=== PATIENT | male | born 1990 | race Hispanic/Latino ===

== ENCOUNTER 2020-07-11 17:16 | Emergency (ER) | payer OTHER, SELFPAY ==
--- NOTE | ~2020-07-11 | XR_ITS ---
EXAMINATION: XR chest 1V DATE: 07/11/2020 18:40 INDICATION: Transient alteration of awareness TECHNIQUE: frontal view of the chest was obtained. COMPARISON: Chest radiograph dated 09/21/2016 FINDINGS: Small lung volumes with minimal opacities at the bilateral lung bases most likely mild basilar atelec tasis related to poor respiratory effort. No pleural effusion or pneumothorax. The cardiomediastinal silhouette is normal. Centimeters retrograde with increased sclerosis at the endplates as well as bon e within bone appearance at the left humeral head, both findings consistent with osteopetrosis. IMPRESSION: 1. Mildly decreased lung volumes with minimal bibasilar opacities and favor atelectasis related to po or inspiratory effort over pneumonia or pulmonary edema. 2. Sclerotic skeletal changes consistent with osteopetrosis. Reviewed, dictated and finalized at location . [facility] SCOUT IMPRESSION: 1. Mildly decreased lung volumes with minimal bibasilar opacities and favor ate lectasis related to poor inspiratory effort over pneumonia or pulmonary edema. 2. Sclerotic skeletal changes consistent with osteopetrosis.
--- NOTE | ~2020-07-11 | CT_ITS ---
EXAMINATION: CT brain wo con DATE: 07/11/2020 18:38 INDICATION: Abnormal shaking TECHNIQUE: Computed tomography (CT) of the head was performed without intravenous contrast. Sagittal and coronal reconstructions were performed. The mA was adjusted according to patient size. Iterative reconstruction technique was employed. The dose-length product was 605.33 mGy-cm. COMPARISON: head CT dated 09/21/2016 FINDINGS: No acute intracranial hemorrhage, acute infarction or abnormal extra axial fluid collection. Ventricl es are normal and symmetric. No mass/mass effect. Mild mucosal thickening the posterior right ethmoid air cells. The orbits and mastoid air cells are normal. IMPRESSION: 1. Normal brain. No acute intracranial process. Reviewed, dictated and finalized at location . [facility] RECEPTIONIST
[2020-07-11 17:51] VITALS: BP 149/80; PULSE 86; RESP 17; TEMP 36.5; O2SAT 100
--- NOTE | 2020-07-11 18:15 | ECG_ITS ---
Measurements Intervals [place] Rate: 72 P: 65 ME: 137 QRS: 48 QRSD: 88 T: 36 QT: 374 QTc: 410 Interpretive Statements SINUS RHYTHM BASELINE ARTIFACT- I, II, III, AVR, AVL,A VF NORMAL ECG Electronically Signed On 07-12-2020 8:45:03 FEDERAL MEDIATOR by Akil Moon D.O.
--- NOTE | 2020-07-11 18:20 | ED.GENADULT ---
HPI - General Adult General Chief complaint: Psychiatric Symptoms Stated complaint: Anxiety Time Seen by Provider: 07/11/20 18:00 Source: family Mode of arrival: ambulatory Limitations: altered mental status History of Present Illness HPI narrative: This patient is a 30 year old male who presents with his father for evaluation of shaking. His father states that he returned from work to find patient was drinking some beer. He states patient reported he needed to take a shower. He states later patient started saying he cooking breath and he started shaking. He states patient had a couple episodes of this en route to ER. He states patient has had similar episodes in the past and he has been hospitalized in a psychiatric facility. HE also notes patient has a history of seizures but he is unware of medications or any other history. Patient appears paranoid and he is slow to respond to answers. He states he is here for anxiety. Related Data Home Medications Medication Instructions Recorded Confirmed No Home Medications 07/11/20 07/11/20 Allergies Allergy/AdvReac Type Severity Reaction Status Date / Time haloperidol Allergy Unknown Unknown Verified 07/11/20 17:50 ketorolac Allergy Unknown Unknown Verified 07/11/20 17:50 tramadol Allergy Unknown Unknown Verified 07/11/20 17:50 AMOXICILLIN TRIHYDRATE Allergy Intermediate Hives / Uncoded 02/09/18 14:54 Red Face POTASSIUM CLAVULANATE Allergy Mild Unknown Uncoded 07/11/20 17:50 HALOPERIDOL LACTATE Allergy Unknown Unknown Uncoded 07/11/20 17:50 Review of Systems Review of Systems: ROS unobtainable: Yes unobtainable due to mental status PMFSH Past Medical History Medical History (Updated 07/11/20 @ 18:21 by Mercy Adams MD) Anxiety Bipolar disorder PTSD (post-traumatic stress disorder) Seizures Surgical History Surgical History (Updated 07/11/20 @ 18:22 by Mercy Adams MD) Hx of appendectomy Social History Social History (Updated 07/11/20 @ 18:23 by Mercy Adams MD) Smoking status: Unknown if ever smoked Alcohol intake: current Substance use type: crack/cocaine and heroin Gender identity (if verbalized by the patient): Male Course Vital Signs Vital signs: Vital Signs Temperature 97.7 F 07/11/20 17:51 Pulse Rate 86 07/11/20 17:51 Respiratory Rate 17 07/11/20 17:51 Blood Pressure 149/80 H 07/11/20 17:51 Pulse Oximetry 100 07/11/20 17:51 Temperature 97.7 F 07/11/20 17:51 Pulse Rate 86 07/11/20 17:51 Respiratory Rate 17 07/11/20 17:51 Blood Pressure 149/80 H 07/11/20 17:51 Pulse Oximetry 100 07/11/20 17:51 Medical Decision Making Vital Signs Vital Signs: Vital Signs Temperature 97.7 F 07/11/20 17:51 Pulse Rate 86 07/11/20 17:51 Respiratory Rate 17 07/11/20 17:51 Blood Pressure 149/80 H 07/11/20 17:51 Pulse Oximetry 100 07/11/20 17:51 Temperature 97.7 F 07/11/20 17:51 Pulse Rate 86 07/11/20 17:51 Respiratory Rate 17 07/11/20 17:51 Blood Pressure 149/80 H 07/11/20 17:51 Pulse Oximetry 100 07/11/20 17:51 Discharge Plan Discharge Prescriptions: No Action No Home Medications RF: 0
--- NOTE | 2020-07-11 18:27 | ED.GENADULT ---
HPI - General Adult General Chief complaint: Psychiatric Symptoms Stated complaint: Anxiety Time Seen by Provider: 07/11/20 18:00 Source: family Mode of arrival: ambulatory Limitations: altered mental status History of Present Illness HPI narrative: This patient is a 30 year old male with history of Bipolar, PTSD, and seizures who presents for evaluation of anxiety. His father is at bedside and he states he brought patient to the ER for shaking. He states he came home and patient was drinking beer. He reports he left and he returned again. PAtient starting having trouble breathing and he was shaking. He states this happened a couple times. He states this has happened to patient before and he has been hospitalized for a psychiatric issue. HE also notes patient has history of seizures but he is unsure of any medications. On review of his chart , has history of pseudoseizures. PAtient states he is here from anxiety but he is not able to discuss any further. HE is just laying in bed and he appears distrustful with answers. Related Data Home Medications Medication Instructions Recorded Confirmed No Home Medications 07/11/20 07/11/20 Allergies Allergy/AdvReac Type Severity Reaction Status Date / Time haloperidol Allergy Unknown Unknown Verified 07/11/20 17:50 ketorolac Allergy Unknown Unknown Verified 07/11/20 17:50 tramadol Allergy Unknown Unknown Verified 07/11/20 17:50 AMOXICILLIN TRIHYDRATE Allergy Intermediate Hives / Uncoded 02/09/18 14:54 Red Face POTASSIUM CLAVULANATE Allergy Mild Unknown Uncoded 07/11/20 17:50 HALOPERIDOL LACTATE Allergy Unknown Unknown Uncoded 07/11/20 17:50 Review of Systems Review of Systems: All systems reviewed & are unremarkable except as noted in HPI and below Constitutional: Constitutional: Denies chills and Denies fever(s) Cardiovascular: Cardiovascular: Denies chest pain Respiratory: Respiratory: Denies cough and Reports dyspnea Gastrointestinal: Gastrointestinal: Denies abdominal pain, Denies nausea and Denies vomiting PMFSH Past Medical History Medical History (Updated 07/12/20 @ 00:53 by Mercy Adams MD) Anxiety Bipolar disorder PTSD (post-traumatic stress disorder) Seizures Surgical History Surgical History (Updated 07/11/20 @ 18:22 by Mercy Adams MD) Hx of appendectomy Social History Social History (Updated 07/11/20 @ 18:23 by Mercy Adams MD) Smoking status: Unknown if ever smoked Alcohol intake: current Substance use type: crack/cocaine and heroin Gender identity (if verbalized by the patient): Male Exam Const: General: no acute distress and alert Orientation/consciousness: patient oriented x3 HENMT: Head: normocephalic and atraumatic Face and sinus: face symmetric Mouth: Yes Normal oral and palatal mucosa present, Yes lip normal, Yes oropharynx normal and Yes moist mucous membranes Eyes: EOM: EOMs intact bilaterally Resp: Effort & Inspection: normal respiratory effort and no retractions Auscultation: clear to auscultation bilaterally Cardio: Rate: regular rate Rhythm: regular rhythm Heart sounds: no murmurs GI: GI Palp: Yes Soft to palpation, No Tenderness to palpation present (GI), No Guarding due to palpation present (GI) and No Rigid due to palpation Auscultation: normal bowel sounds Skin: General skin exam: normal color Rashes: no rashes Neuro: General: patient oriented x3, moves all extremities and CN's II-XI intact bilaterally Extrem: General: normal to inspection Psych: Appearance: grossly normal Other: flat affect. patient will stare at you before answer. He denies suicide and homicidal t Course Reevaluation(s) Reevaluation #1: Patient has not had an shortness of breath in ER. I spoke with his father using that [employer] video cryptologic technician. He states patient was released from penitentiary 1-2 weeks ago. He is unsure of what medication he takes. PAtient has no complaints currently. He states patient was tomas
--- NOTE | 2020-07-11 18:32 | PC.NURSE ---
Pt taken to CT at this time
[2020-07-11 18:55] LABS: Glucose Point of Care 93 (65-105)
[2020-07-11 19:18] LABS: Add Urine Microscopic? NO; Appearance Urine Clear (Clear); Bilirubin Urine Negative (Negative); Blood Urine Negative (Negative); Color Urine Colorless (Yellow); Glucose Urine UA Negative (Negative); Ketones Urine Negative (Negative); Leukocyte Esterase Ur Negative LEU/UL (Negative); Nitrate Urine Negative (Negative); Protein Urine Negative (Negative); Urobilinogen Urine Negative mg/dL (<2.0)
[2020-07-11 19:25] LABS: Specific Grav Ur 1.004 (1.001-1.035)
[2020-07-11 19:32] LABS: Barbiturate Screen Urine Negative (Negative); Benzodiazepines Screen Urine Negative (Negative)
[2020-07-11 19:33] LABS: Cannabinoid Screen Urine Negative (Negative); Cocaine Screen Urine Negative (Negative); Methadone Screen Urine Negative (Negative); Opiate Screen Urine Negative (Negative); Phencyclidine Screen Urine Negative (Negative)
[2020-07-11 19:50] LABS: Basophils Absolute Auto 0.1 K/mm3 (0.0-0.1); Basophils Percent Auto 0.7 % (0.2-1.2); Eosinophils Absolute Auto 0.3 K/mm3 (0-0.3); Eosinophils Percent Auto 3.7 % (0-4.4); Hematocrit 51.8 % (42.0-52.0); Hemoglobin 17.6 g/dL (14.0-18.0); Immature Granulocyte Absolute 0.02 K/mm3 (0.00-0.031); Immature Granulocyte Percent A 0.3 % (0-0.5); Lymphocytes Absolute Auto 2.05 K/mm3 (0.9-3.2); Lymphocytes Percent Auto 30.7 % (18.3-44.2); Mean Corpuscular Volume 88.4 fl (80-100); Monocytes Absolute Auto 0.3 K/mm3 (0.1-0.6); Monocytes Percent Auto 4.5 % (2.6-8.5); Neutrophils Percent Auto 60.1 % (45.5-73.1); Platelet Count Result 299 k/mm3 (150-375); Red Blood Count 5.86 M/mm3 (4.6-6.20); Red Cell Distribution Width 13.5 % (11.5-14.5); White Blood Count 6.7 K/mm3 (4.5-10.0)
[2020-07-11 20:05] LABS: Acetaminophen < 10 ug/mL (10-30); Ethanol < 10 mg/dL (<10); Salicylate 1.3 mg/dL (2-20)
[2020-07-11 20:06] LABS: Potassium 3.8 mmol/L (3.4-5.0)
[2020-07-11 20:10] LABS: Alanine Aminotransferase 19 U/L (4-50); Albumin Level 4.9 g/dL (3.5-5.1); Alkaline Phosphatase 97 U/L (38-126); Anion Gap 9 mmol/L (8-16); Aspartate Amino Transferase 41 U/L (17-59); Bilirubin,Total 0.4 mg/dL (0.2-1.3); Blood Urea Nitrogen 8 mg/dL (9-20); Calcium 9.8 mg/dL (8.4-10.2); Carbon Dioxide 33 mmol/L (22-30); Chloride 98 mmol/L (98-107); Estimated CRCL calculation 120 ml/min; Estimated Glomerular Filt Rate > 60; Glucose 67 mg/dL (75-110); Sodium 140 mmol/L (137-145)
[2020-07-11 20:16] LABS: Amphetamine Screen Urine Positive (Negative)
[2020-07-11 20:18] LABS: Phenytoin Dilantin < 3 ug/mL (10-20)
[2020-07-11 20:20] LABS: Lithium < 0.2 mmol/L (0.6-1.2)
--- NOTE | 2020-07-11 20:29 | PC.NURSE ---
Not cleared to call [facility] at this time per Dr. Adams; per her father brought pt. in for shakiness
[2020-07-11 21:43] VITALS: BP 137/80; PULSE 75; RESP 16; O2SAT 100
[2020-07-12 00:33] VITALS: BP 128/72; PULSE 88; RESP 18; O2SAT 100
[2020-07-12] MEDS: LORazepam (*CRX) 1 MG TABLET PO (00:35)
== END 2020-07-12 01:03 | disposition home or self-care (01) ==
PROVIDERS: Emergency Provider General Practice
DX: F41.9 Anxiety disorder, unspecified (principal); F15.10 Other stimulant abuse, uncomplicated
CPT/HCPCS: 36415; 70450; 71045; 80053; 80178; 80185; 80307; 81003; 82948; 84443; 85025; 93005; 99284; A9270

== ENCOUNTER 2021-06-09 07:04 | Emergency (ER) | payer OTHER, SELFPAY ==
--- NOTE | ~2021-06-09 | XR_ITS ---
EXAMINATION: XR lumbar spine 2-3V DATE: 06/09/2021 07:37 INDICATION: Back pain TECHNIQUE: Anteroposterior and lateral views of the lumbar spine, and cone-down lateral view of the l umbosacral junction were obtained. COMPARISON: 01/07/2010 FINDINGS: There are 6 mm of retrolisthesis of L5 on S1. No acute fracture is identified. There is mil d loss of intervertebral disc space height at L5-S1. There is a chronic superior endplate deformity i n the L1 vertebral body. The vertebral body heights are maintained. A metallic density projects in th e right lower quadrant. IMPRESSION: 1. Grade 1 retrolisthesis of L5 on S1. 2. Rugger-jersey spine, consistent with hyperparathyroidism versus osteopetrosis. Reviewed, dictated and finalized at location A. IMPRESSION: 1. Grade 1 retrolisthesis of L5 on S1. 2. Rugger-jersey spine, consistent with hyperparathyroidism versus osteopetrosi s.
[2021-06-09 07:13] VITALS: BP 158/94; PULSE 71; RESP 18; TEMP 36.6; O2SAT 97
--- NOTE | 2021-06-09 07:33 | ED.GENADULT ---
HPI - General Adult General Chief complaint: Back Pain/Injury Stated complaint: PAIN ALL OVER Time Seen by Provider: 06/09/21 07:11 Source: patient, RN notes reviewed and old records reviewed Mode of arrival: EMS Limitations: other (poor historian) History of Present Illness HPI narrative: This is a 31 year old male with history of Bipolar, polysubstance abuse who presents via EMS for evaluation of back pain. Patient states he went for a walk last night and he fell. He tells me he has low back pain since his fall. He has pain that radiates down both legs. Denies numbness, tingling, urinary incontinence. EMS reports patient called 911 due to pain all over. Patient is poor historian. He answers I don't remember to most questions. Patient has come to ER with a suitcase and he states that is all his belongings. He admits to drinking 2 shots of garza goose in past 5 days . He denies recent drug use. Related Data Home Medications Medication Instructions Recorded Confirmed No Home Medications 07/11/20 07/11/20 Allergies Allergy/AdvReac Type Severity Reaction Status Date / Time haloperidol Allergy Unknown Unknown Verified 07/11/20 17:50 ketorolac Allergy Unknown Unknown Verified 07/11/20 17:50 tramadol Allergy Unknown Unknown Verified 07/11/20 17:50 AMOXICILLIN TRIHYDRATE Allergy Intermediate Hives / Uncoded 02/09/18 14:54 Red Face POTASSIUM CLAVULANATE Allergy Mild Unknown Uncoded 07/11/20 17:50 HALOPERIDOL LACTATE Allergy Unknown Unknown Uncoded 07/11/20 17:50 Review of Systems Review of Systems: All systems reviewed & are unremarkable except as noted in HPI and below PMFSH Past Medical History Medical History (Updated 06/09/21 @ 09:24 by Mercy Adams MD) Anxiety Bipolar disorder PTSD (post-traumatic stress disorder) Seizures Surgical History Surgical History (Updated 07/11/20 @ 18:22 by Mercy Adams MD) Hx of appendectomy Social History Social History (Updated 07/11/20 @ 18:23 by Mercy Adams MD) Smoking status: Unknown if ever smoked Alcohol intake: current Substance use type: crack/cocaine and heroin Gender identity (if verbalized by the patient): Male Exam Narrative: GENERAL: Well-appearing, well-nourished, and in no acute distress. HEAD: Normocephalic, atraumatic EYES: PERRLA and EOMI, conjunctiva clear without discharge EARS: TM's clear bilaterally without erythema or dullness NOSE: Nares clear, no rhinorrhea or epistaxis THROAT:Mucous membranes moist, Oropharynx normal without erythema, exudate, peritonsillar swelling or fluctuance NECK: Supple, without lymphadenopathy or mass RESPIRATORY: No respiratory distress, Airway patent, Respirations non-labored, Clear to auscultation without rales, rhonchi or wheeze HEART: Regular rate and rhythm. No murmur heard. Normal peripheral pulses. ABDOMEN: Soft, nontender, nondistended, normal active bowel sounds. No masses. No rebound or guarding, No organomegaly. EXTREMITIES: No edema, normal strength with full range of motion. small blisters to bottom of right foot SKIN: Warm, dry, normal color without rash NEURO: Alert and oriented x3. CN 2-12 grossly intact. No focal deficits. PSYCH: Normal mood and affect. Course Reevaluation(s) Reevaluation #1: I Discussed with patient labs unremarkable other than positive drug screen. He is stable for discharge. He is able to ambulate with steady gait, no difficulty Date: 06/09/21 Time: 08:56 Vital Signs Vital signs: Vital Signs Temperature 97.8 F 06/09/21 07:13 Pulse Rate 71 06/09/21 07:13 Respiratory Rate 18 06/09/21 07:13 Blood Pressure 158/94 H 06/09/21 07:13 Pulse Oximetry 97 06/09/21 07:13 Temperature 97.8 F 06/09/21 07:13 Pulse Rate 71 06/09/21 07:13 Respiratory Rate 18 06/09/21 07:13 Blood Pressure 158/94 H 06/09/21 07:13 Pulse Oximetry 97 06/09/21 07:13 Medical Decision Making Vital Signs Vital Signs: Vital Signs
[2021-06-09 07:58] LABS: Add Urine Microscopic? YES; Appearance Urine Clear (Clear); Bacteria Urine Trace /hpf; Bilirubin Urine Negative (Negative); Blood Urine Negative (Negative); Color Urine Yellow (Yellow); Glucose Urine UA Negative (Negative); Ketones Urine Trace mg/dL (Negative); Leukocyte Esterase Ur Negative LEU/UL (Negative); Mucus Urine Heavy /lpf; Nitrate Urine Negative (Negative); Protein Urine 1+ mg/dL (Negative); WBC Urine 0-3 /hpf
[2021-06-09] MEDS: ACETAMINOPHEN 500 MG TABLET 1000 MG PO (08:05)
[2021-06-09] MEDS: CYCLOBENZAPRINE HCL 10 MG TABLET PO (08:05)
[2021-06-09 08:10] LABS: Barbiturate Screen Urine Negative (Negative); Benzodiazepines Screen Urine Negative (Negative)
[2021-06-09 08:11] LABS: Cannabinoid Screen Urine Negative (Negative); Cocaine Screen Urine Negative (Negative); Methadone Screen Urine Negative (Negative); Opiate Screen Urine Positive (Negative); Phencyclidine Screen Urine Negative (Negative)
[2021-06-09 08:20] LABS: Basophils Absolute Auto 0.1 K/mm3 (0.0-0.1); Basophils Percent Auto 0.9 % (0.2-1.2); Eosinophils Absolute Auto 0.1 K/mm3 (0-0.3); Eosinophils Percent Auto 1.6 % (0-4.4); Hematocrit 42.7 % (42.0-52.0); Hemoglobin 14.3 g/dL (14.0-18.0); Immature Granulocyte Absolute 0.02 K/mm3 (0.00-0.031); Immature Granulocyte Percent A 0.3 % (0-0.5); Lymphocytes Absolute Auto 2.29 K/mm3 (0.9-3.2); Lymphocytes Percent Auto 29.7 % (18.3-44.2); Mean Corpuscular HGB Conc 33.5 g/dl (32-36); Mean Corpuscular Hemoglobin 30.4 pg (26-34); Mean Corpuscular Volume 90.7 fl (80-100); Mean Platelet Volume 9.2 fl (7.4-10.4); Monocytes Absolute Auto 0.6 K/mm3 (0.1-0.6); Monocytes Percent Auto 7.8 % (2.6-8.5); Neutrophils Absolute Auto 4.6 K/mm3 (1.3-6.7); Neutrophils Percent Auto 59.7 % (45.5-73.1); Platelet Count Result 257 k/mm3 (150-375); Red Blood Count 4.71 M/mm3 (4.6-6.20); Red Cell Distribution Width 13.6 % (11.5-14.5); White Blood Count 7.7 K/mm3 (4.5-10.0)
[2021-06-09 08:31] LABS: Alanine Aminotransferase 19 U/L (4-50); Albumin Level 4.4 g/dL (3.5-5.1); Alkaline Phosphatase 85 U/L (38-126); Anion Gap 9 mmol/L (8-16); Aspartate Amino Transferase 52 U/L (17-59); Bilirubin,Total 0.6 mg/dL (0.2-1.3); Blood Urea Nitrogen 16 mg/dL (9-20); Calcium 9.3 mg/dL (8.4-10.2); Carbon Dioxide 26 mmol/L (22-30); Chloride 103 mmol/L (98-107); Creatine Kinase 505 U/L (55-170); Estimated CRCL calculation 142 ml/min; Estimated Glomerular Filt Rate > 60; Glucose 73 mg/dL (65-110); Magnesium 2.2 mg/dL (1.6-2.3); Potassium 3.5 mmol/L (3.4-5.0); Sodium 138 mmol/L (137-145)
[2021-06-09 08:32] LABS: Ethanol < 10 mg/dL (<10)
[2021-06-09 08:55] LABS: Amphetamine Screen Urine Positive (Negative)
== END 2021-06-09 09:46 | disposition home or self-care (01) ==
PROVIDERS: Emergency Provider General Practice
DX: M79.10 Myalgia, unspecified site (principal); F19.10 Other psychoactive substance abuse, uncomplicated
CPT/HCPCS: 36415; 72100; 80053; 80307; 81001; 82550; 83735; 85025; 99283; A9270

== ENCOUNTER 2021-10-23 22:06 | Emergency (ER) | payer OTHER, SELFPAY ==
[2021-10-23 22:10] VITALS: PULSE 100; RESP 16; TEMP 37.1; O2SAT 98
--- NOTE | 2021-10-23 22:35 | ED.ANXIETY ---
HPI - Anxiety General Chief Complaint: Anxiety Stated Complaint: behavioral and anxiety issues Time Seen by Provider: 10/23/21 22:09 Source: patient and EMS Mode of arrival: EMS Limitations: no limitations History of Present Illness HPI narrative: Pt is a 31 y/o male, presents to ED via EMS from [facility] where he was called to a local establishment by police. He admits to using ecstasy to control his anxiety. EMS advise the police called them to transport the patient out of town, attempting to return him to his home town of [place] but he declined and asked to seek evaluation of his anxiety here. He reports, upon arrival to the ED, that he is no longer anxious and now has a headache. He reports he prefers to stay here in [place] of returning home tonight. He denies SI or HI and he has no CP, SOB, fevers, chills, abdominal pain, NVDC or urinary symptoms. MD complaint: anxiety Onset (ago): unknown (when he was confronted by police, he states this made him anxious) Severity: mild Quality: improving Place: outdoors History of similar episodes: Yes Related Data Home Medications Medication Instructions Recorded Confirmed No Home Medications 07/11/20 07/11/20 Allergies Allergy/AdvReac Type Severity Reaction Status Date / Time haloperidol Allergy Unknown Unknown Verified 07/11/20 17:50 ketorolac Allergy Unknown Unknown Verified 07/11/20 17:50 tramadol Allergy Unknown Unknown Verified 07/11/20 17:50 AMOXICILLIN TRIHYDRATE Allergy Intermediate Hives / Uncoded 02/09/18 14:54 Red Face POTASSIUM CLAVULANATE Allergy Mild Unknown Uncoded 07/11/20 17:50 HALOPERIDOL LACTATE Allergy Unknown Unknown Uncoded 07/11/20 17:50 Review of Systems Review of Systems: refer to HPI Constitutional: Constitutional: Reports as per HPI Psychiatric: Psychiatric: Reports as per HPI [facility] Past Medical History Medical History Anxiety Bipolar disorder PTSD (post-traumatic stress disorder) Seizures Surgical History Surgical History (Updated 07/11/20 @ 18:22 by Mercy Adams MD) Hx of appendectomy Social History Social History (Updated 07/11/20 @ 18:23 by Mercy Adams MD) Smoking status: Unknown if ever smoked Alcohol intake: current Substance use type: marijuana and hallucinogens Gender identity (if verbalized by the patient): Male Exam Const: General: no acute distress Nutritional Appearance: average body habitus and well nourished Orientation/consciousness: oriented to person, oriented to place, oriented to time and patient oriented x3 Other: Pt uses hand motions frequently when conversing. Upon nursing staff entering room, following arrival to the ED via EMS, pt began masturbating. HENMT: Head: normal to inspection Ears: hearing grossly normal bilaterally, TM normal on the right and TM normal on the left General nose exam: Normal external nose present and Normal nares present Face and sinus: normal facial exam and face symmetric Mouth: Yes Normal oral and palatal mucosa present Teeth and gingiva: poor dentition Throat: posterior oropharynx normal Eyes: General: appearance normal, both eyes and all related structures Visual Gonzalez: normal visual gonzalez by confrontation Alignment and Position: alignment normal Eyelids: eyelids normal Conjunctivae: conjunctivae normal Sclera: sclerae normal Pupils: Equal, round and reactive pupils present Direct Ophthalmoscopy: no photophobia Neck: Neck: normal visual inspection, full ROM, no lymphadenopathy and no meningeal signs Thyroid: thyroid normal Lymphatic: no lymphadenopathy noted Chest: Chest palpation & inspection: normal inspection of the chest and normal palpation of entire chest wall Resp: Effort & Inspection: normal respiratory effort and able to speak in complete sentences Cardio: Palpation: normal PMI Rate: regular rate Rhythm: regular rhythm Heart sounds: S1 normal heart sound present and S2
[2021-10-23] MEDS: ACETAMINOPHEN 500 MG TABLET 1000 MG PO (22:41)
[2021-10-23 23:16] LABS: Basophils Absolute Auto 0.1 K/mm3 (0.0-0.1); Basophils Percent Auto 0.9 % (0.2-1.2); Eosinophils Absolute Auto 0.1 K/mm3 (0-0.3); Eosinophils Percent Auto 1.5 % (0-4.4); Hematocrit 47.4 % (42.0-52.0); Hemoglobin 15.9 g/dL (14.0-18.0); Immature Granulocyte Absolute 0.02 K/mm3 (0.00-0.031); Immature Granulocyte Percent A 0.3 % (0-0.5); Lymphocytes Absolute Auto 1.98 K/mm3 (0.9-3.2); Lymphocytes Percent Auto 29.3 % (18.3-44.2); Mean Corpuscular HGB Conc 33.5 g/dl (32-36); Mean Corpuscular Hemoglobin 30.3 pg (26-34); Mean Corpuscular Volume 90.3 fl (80-100); Mean Platelet Volume 8.6 fl (7.4-10.4); Monocytes Absolute Auto 0.5 K/mm3 (0.1-0.6); Monocytes Percent Auto 6.7 % (2.6-8.5); Neutrophils Absolute Auto 4.1 K/mm3 (1.3-6.7); Neutrophils Percent Auto 61.3 % (45.5-73.1); Platelet Count Result 299 k/mm3 (150-375); Red Blood Count 5.25 M/mm3 (4.6-6.20); Red Cell Distribution Width 14.1 % (11.5-14.5); White Blood Count 6.8 K/mm3 (4.5-10.0)
[2021-10-23 23:20] VITALS: BP 128/82; PULSE 78; RESP 16; O2SAT 98
[2021-10-23 23:35] LABS: Barbiturate Screen Urine Negative (Negative); Benzodiazepines Screen Urine Negative (Negative)
[2021-10-23 23:40] LABS: Cannabinoid Screen Urine Negative (Negative); Cocaine Screen Urine Negative (Negative); Methadone Screen Urine Negative (Negative); Opiate Screen Urine Negative (Negative); Phencyclidine Screen Urine Negative (Negative)
--- NOTE | 2021-10-24 00:06 | PC.NURSE ---
Patient is verbally aggressive and combative toward staff. patient states, Fuck you and your stupid ass. You people are doing nothing for me and Fuck you guys Patient proceeded to come toward staff yelling Fuck you., I hate all you Mother Fuckers. Patient discharged and refused to sign discharge paperwork. Security called to escort patient out and Patient refuses to leave room. Security in room with the patient. Several nurses and techs witnessed patient being aggressive and combative toward staff. Patient IV removed.
[2021-10-24 00:10] LABS: Amphetamine Screen Urine Positive (Negative)
== END 2021-10-24 00:16 | disposition home or self-care (01) ==
PROVIDERS: Emergency Provider Nurse Practitioner Family
DX: F41.9 Anxiety disorder, unspecified (principal); F19.10 Other psychoactive substance abuse, uncomplicated; F31.9 Bipolar disorder, unspecified
CPT/HCPCS: 36415; 80053; 80307; 83690; 85025; 99283; A9270

== ENCOUNTER 2022-02-16 13:37 | Emergency (ER) | payer OTHER, SELFPAY ==
--- NOTE | 2022-02-16 13:40 | ED.PSYCH ---
HPI - Psych General Chief Complaint: Psychiatric Symptoms Stated Complaint: depressed Time Seen by Provider: 02/16/22 13:39 History of Present Illness HPI Narrative: pt here with c/o depression pt very difficult to get any answers from stating sometmes to almost every answer adn can't elaborate adn says no to meds, a doctor or previous attempts a plan for suicide sometimes thoughts but not now never speaking to a couselor no primary care doc or meidcal issues but can't even tell me his allergy list denies drugs/etoh no trauma or other issues says doesn't know how his appetite is says sleeps fine can't tell me if he lives on his own or homeless just sometimes also says no family or friends however all of these answers have been shown false based on dad drove him here then he states and h/o anxiety allergies to meds and ptsd anxiety bipolar depression in past records and the nurse today has taken care of him before. so when asked about all of this he still says sometimes Related Data Home Medications Medication Instructions Recorded Confirmed No Home Medications 07/11/20 07/11/20 Allergies Allergy/AdvReac Type Severity Reaction Status Date / Time haloperidol Allergy Unknown Unknown Verified 07/11/20 17:50 ketorolac Allergy Unknown Unknown Verified 07/11/20 17:50 tramadol Allergy Unknown Unknown Verified 07/11/20 17:50 AMOXICILLIN TRIHYDRATE Allergy Intermediate Hives / Uncoded 02/09/18 14:54 Red Face POTASSIUM CLAVULANATE Allergy Mild Unknown Uncoded 07/11/20 17:50 HALOPERIDOL LACTATE Allergy Unknown Unknown Uncoded 07/11/20 17:50 Review of Systems Constitutional: Comments: CONSTITUTIONAL: Denies fever, chills, or sweats. EYES: Denies visual changes, redness, or discharge. ENT: Denies rhinorrhea, congestion, sore throat, or otalgia. CARDIOVASCULAR: Denies chest pain, palpitations, or edema. RESPIRATORY: Denies cough or dyspnea. GASTROINTESTINAL: Denies abdominal pain, nausea, vomiting, or diarrhea. GENITOURINARY: Denies dysuria or hematuria. SKIN: Denies rash or itching. MUSCULOSKELETAL: Denies back pain, joint pain, or myalgia. NEUROLOGIC: Denies headache, numbness, or weakness. PSYCHIATRIC: depressoin not actively suicidal or homicidal but has had thoughts in past says no attempts denies access to guns [facility] Past Medical History Medical History Anxiety Bipolar disorder PTSD (post-traumatic stress disorder) Seizures Surgical History Surgical History (Updated 07/11/20 @ 18:22 by Mercy Adams MD) Hx of appendectomy Social History Social History (Updated 07/11/20 @ 18:23 by Mercy Adams MD) Smoking status: Unknown if ever smoked Alcohol intake: current Substance use type: does not use Gender identity (if verbalized by the patient): Male Exam Const: Other: APPEARANCE: Well appearing, no pain in distress, well-nourished. but unkept LAMBERTO smell Head normocephalic atraumtaic. EYES: PERRLA/EOMI, conjunctivae very clear. NOSE: Normal no drainage EARS:TMS clear Terry Atkinson, with good light reflex. THROAT: Pharynx clear, no exudate. NECK: Supple. No adenopathy, no masses. RESPIRATORY: Airway patent, repsirations nonlabored. Clear to auscultation bilaterally, no rales, rhonchi, wheezing. CARDIOVASCULAR: Regular rate and rhythm without murmurs rubs or gallops. ABDOMINAL: Soft, nontender, nondistended, no hepatosplenomegally MUSCULOSKELETAl: Moves all extremities. Strenght/ROM intact, No edema, No calf tenderness. NEURO: Alert. Cranial nerves II through XII intact. Good gait. Good coordination SKIN:: Warm, dry. Normal Color PSYCHIATRIC:flat affect won't elaborate to any questions no s/h ideation Course Course Emergency Course: pt is medically cleared at 1535 crisis here to evaluate no s/h ideation and meds given and didnt want to stay talked about outpt help wanted to leave vs inpt vs waiting for full evaluation finished so see nursing/sa
[2022-02-16 13:55] VITALS: BP 154/78; PULSE 76; RESP 18; TEMP 36.6; O2SAT 100
[2022-02-16 14:25] LABS: Basophils Absolute Auto 0.1 K/mm3 (0.0-0.1); Basophils Percent Auto 0.7 % (0.2-1.2); Eosinophils Absolute Auto 0.2 K/mm3 (0-0.3); Eosinophils Percent Auto 1.7 % (0-4.4); Hemoglobin 16.2 g/dL (14.0-18.0); Immature Granulocyte Absolute 0.03 K/mm3 (0.00-0.031); Immature Granulocyte Percent A 0.3 % (0-0.5); Lymphocytes Percent Auto 27.6 % (18.3-44.2); Mean Corpuscular HGB Conc 34.5 g/dl (32-36); Mean Corpuscular Hemoglobin 29.9 pg (26-34); Mean Corpuscular Volume 86.7 fl (80-100); Mean Platelet Volume 8.9 fl (7.4-10.4); Monocytes Absolute Auto 0.6 K/mm3 (0.1-0.6); Monocytes Percent Auto 6.8 % (2.6-8.5); Neutrophils Absolute Auto 5.5 K/mm3 (1.3-6.7); Neutrophils Percent Auto 62.9 % (45.5-73.1); Platelet Count Result 302 k/mm3 (150-375); Red Blood Count 5.42 M/mm3 (4.6-6.20); Red Cell Distribution Width 13.6 % (11.5-14.5); White Blood Count 8.7 K/mm3 (4.5-10.0)
[2022-02-16 14:32] LABS: Acetaminophen < 10 ug/mL (10-30); Ethanol < 10 mg/dL (<10); Salicylate < 1.0 mg/dL (2-20)
[2022-02-16 14:33] LABS: Alanine Aminotransferase 16 U/L (6-50); Albumin Level 4.8 g/dL (3.5-5.1); Alkaline Phosphatase 90 U/L (38-126); Anion Gap 7 mmol/L (8-16); Aspartate Amino Transferase 36 U/L (17-59); Bilirubin,Total 0.4 mg/dL (0.2-1.3); Blood Urea Nitrogen 3 mg/dL (9-20); Calcium 9.2 mg/dL (8.4-10.2); Carbon Dioxide 30 mmol/L (22-30); Chloride 101 mmol/L (98-107); Estimated CRCL calculation 143 ml/min; Estimated Glomerular Filt Rate > 60; Glucose 84 mg/dL (65-110); Potassium 3.4 mmol/L (3.4-5.0); Sodium 138 mmol/L (137-145)
[2022-02-16] MEDS: LORazepam (*CRX) 1 MG TABLET 2 MG PO (15:01)
[2022-02-16 15:14] LABS: Appearance Urine Clear (Clear); Bilirubin Urine Negative (Negative); Blood Urine Negative (Negative); Color Urine Yellow (Yellow); Glucose Urine UA Negative (Negative); Ketones Urine Negative (Negative); Leukocyte Esterase Ur Negative LEU/UL (Negative); Nitrate Urine Negative (Negative); Protein Urine Negative (Negative); Specific Grav Ur 1.025 (1.001-1.035); Urobilinogen Urine 0.2 mg/dL (<2.0)
[2022-02-16 15:19] LABS: Mucus Urine Rare /lpf; RBC Urine 0-2 /hpf (0-2); Squamous Epithelial Cell Urine Rare /hpf (Few); WBC Urine 0-3 /hpf
[2022-02-16 15:20] LABS: Add Urine Microscopic? NO
[2022-02-16] MEDS: diphenhydrAMINE HCl INJ 50 MG/ML VIAL IM (15:28)
[2022-02-16 15:30] LABS: Barbiturate Screen Urine Negative (Negative); Benzodiazepines Screen Urine Negative (Negative)
--- NOTE | 2022-02-16 15:34 | PC.NURSE ---
PT MEDICALLY CLEAR AT THIS TIME.
[2022-02-16 15:40] LABS: Cannabinoid Screen Urine Negative (Negative); Cocaine Screen Urine Negative (Negative); Methadone Screen Urine Negative (Negative); Opiate Screen Urine Negative (Negative); Phencyclidine Screen Urine Negative (Negative)
[2022-02-16 15:52] LABS: SARS-CoV-2 RNA PCR Negative
[2022-02-16 16:01] LABS: Amphetamine Screen Urine Positive (Negative)
--- NOTE | 2022-02-16 17:54 | PC.NURSE ---
Pt seen ambulating out of room w/ steady gait after crisis eval, pt denies SI/HI for EDP, RN, & Crisis. Pt declined exit vitals or waiting for d/c instructions/POC.
== END 2022-02-16 17:58 | disposition left against medical advice (07) ==
LOC: ANHED 14:31
PROVIDERS: Emergency Provider Emergency Medicine
DX: F32.A Depression, unspecified (principal); F15.10 Other stimulant abuse, uncomplicated; Z20.822 Contact with and (suspected) exposure to COVID-19
CPT/HCPCS: 36415; 80053; 80307; 81003; 84443; 85025; 96372; 99284; A9270; C9803; J1200; U0003; U0005

== ENCOUNTER 2022-04-22 18:32 | Emergency (ER) | payer OTHER, SELFPAY ==
[2022-04-22 19:29] VITALS: BP 141/86; PULSE 89; RESP 20; TEMP 36.6; O2SAT 97
[2022-04-22 20:08] LABS: Basophils Absolute Auto 0.1 K/mm3 (0.0-0.1); Basophils Percent Auto 0.6 % (0.2-1.2); Eosinophils Absolute Auto 0.1 K/mm3 (0-0.3); Hematocrit 41.7 % (42.0-52.0); Hemoglobin 13.8 g/dL (14.0-18.0); Immature Granulocyte Absolute 0.03 K/mm3 (0.00-0.031); Immature Granulocyte Percent A 0.3 % (0-0.5); Lymphocytes Absolute Auto 2.41 K/mm3 (0.9-3.2); Lymphocytes Percent Auto 21.1 % (18.3-44.2); Mean Corpuscular HGB Conc 33.1 g/dl (32-36); Mean Corpuscular Hemoglobin 29.4 pg (26-34); Mean Corpuscular Volume 88.7 fl (80-100); Mean Platelet Volume 8.9 fl (7.4-10.4); Monocytes Absolute Auto 0.9 K/mm3 (0.1-0.6); Monocytes Percent Auto 7.6 % (2.6-8.5); Neutrophils Absolute Auto 7.9 K/mm3 (1.3-6.7); Neutrophils Percent Auto 69.4 % (45.5-73.1); Platelet Count Result 357 k/mm3 (150-375); Red Cell Distribution Width 14.1 % (11.5-14.5); White Blood Count 11.4 K/mm3 (4.5-10.0)
--- NOTE | 2022-04-22 20:16 | PC.NURSE ---
Patient upset and yelling in the waiting room that he is dying . Patients vital signs stable at this time and patient able to walk in and out of ED without difficulty and in no distress.
[2022-04-22 20:17] LABS: Ethanol < 10 mg/dL (<10)
[2022-04-22 20:18] LABS: Alanine Aminotransferase 23 U/L (6-50); Albumin Level 4.3 g/dL (3.5-5.1); Alkaline Phosphatase 83 U/L (38-126); Anion Gap 8 mmol/L (8-16); Aspartate Amino Transferase 50 U/L (17-59); Bilirubin,Total 0.5 mg/dL (0.2-1.3); Blood Urea Nitrogen 21 mg/dL (9-20); Calcium 9.3 mg/dL (8.4-10.2); Carbon Dioxide 27 mmol/L (22-30); Chloride 102 mmol/L (98-107); Estimated CRCL calculation 120 ml/min; Estimated Glomerular Filt Rate > 60; Glucose 102 mg/dL (65-110); Sodium 137 mmol/L (137-145)
--- NOTE | 2022-04-22 20:40 | ED.GENADULT ---
HPI - General Adult General Chief complaint: Unspecified Stated complaint: not feeling well, depression, anxiety Time Seen by Provider: 04/22/22 20:28 History of Present Illness HPI narrative: This is a 32-year-old male with past medical history of anxiety and PTSD and reported history of alcohol withdrawal, who presents to the emergency department with multiple complaints. He states he has burning sensation in the fingers, pain in the feet and feelings of anxiety. He states he is not sure when his last drink was. He requests medication for anxiety and states he has previously taken Librium. He does not know when his last dose of Librium was. He denies suicidal or homicidal ideations or hallucinations Related Data Allergies Allergy/AdvReac Type Severity Reaction Status Date / Time haloperidol Allergy Unknown Unknown Verified 04/22/22 19:34 ketorolac Allergy Unknown Unknown Verified 04/22/22 19:34 tramadol Allergy Unknown Unknown Verified 04/22/22 19:34 AMOXICILLIN TRIHYDRATE Allergy Intermediate Hives / Uncoded 04/22/22 19:34 Red Face POTASSIUM CLAVULANATE Allergy Mild Unknown Uncoded 04/22/22 19:34 HALOPERIDOL LACTATE Allergy Unknown Unknown Uncoded 04/22/22 19:34 Review of Systems Review of Systems: CONSTITUTIONAL: Denies fever, chills, or sweats. EYES: Denies visual changes, redness, or discharge. ENT: Denies rhinorrhea, congestion, sore throat, or otalgia. CARDIOVASCULAR: palpitations, Denies chest pain, or edema. RESPIRATORY: Denies cough or dyspnea. GASTROINTESTINAL: Denies abdominal pain, nausea, vomiting, or diarrhea. GENITOURINARY: Denies dysuria or hematuria. SKIN: Denies rash or itching. MUSCULOSKELETAL: Denies back pain, joint pain, or myalgia. NEUROLOGIC: Paresthesias of the fingers denies headache, numbness, dizziness, or weakness. PSYCHIATRIC: Anxiety Denies depression. [facility] Past Medical History Medical History Anxiety Bipolar disorder PTSD (post-traumatic stress disorder) Seizures Surgical History Surgical History (Updated 07/11/20 @ 18:22 by Mercy Adams MD) Hx of appendectomy Social History Social History (Updated 07/11/20 @ 18:23 by Mercy Adams MD) Smoking status: Unknown if ever smoked Alcohol intake: current Substance use type: does not use Gender identity (if verbalized by the patient): Male Exam Narrative: GENERAL: well-nourished, appears very anxious HEAD: Normocephalic, atraumatic. An area of broken hair consistent with hair pulling noted EYES: PERRLA and EOMI. ENT: Nares clear, no rhinorrhea or epistaxis. Mucous membranes moist. Oropharynx without tonsillar hypertrophy exudate or other lesions. NECK: Supple. No adenopathy or masses. No carotid bruits or JVD CHEST: Clear to auscultation. No respiratory distress. No wheezes rales or rhonchi HEART: Regular rate and rhythm. No murmur heard. Normal peripheral pulses. ABDOMEN: Soft, nontender, nondistended, normal active bowel sounds. EXTREMITIES: Normal range of motion. No edema. SKIN: Healing wounds of the feet, consistent with prolonged walking, no noted abnormalities of the hands, skin otherwise dry NEURO: No focal deficits. Alert and oriented x3. PSYCH: Normal mood and affect. Course Course Emergency Course: 21:05 - Patient becoming verbally aggressive with staff. Will treat with Librium and plan for discharge. ETOH negative. TSH within normal limit. CIWA 8. 21:35 - Patient shouting out in the room stating he wants to speak with his father. He repeatedly denies suicidal ideations and repeatedly requests a private room. SUPPLIER QUALITY review shows the patient was last prescribed Librium in September 2020. He does not appear to be drug seeking. Will discharge with Librium taper. Vital Signs Vital signs: Vital Signs Temperature 98 F 04/22/22 19:29 Pulse Rate 89 04/22/22 19:29 Respiratory Rate 20 04/22/22 19:29 Blood Pressure 141/86 H 04/22/22 1
[2022-04-22] MEDS: chlordiazePOXIDE (*CRX) 25 MG CAPSULE 50 MG PO (21:04)
[2022-04-22 21:49] VITALS: BP 138/100; PULSE 100; RESP 16; O2SAT 99
== END 2022-04-22 21:49 | disposition home or self-care (01) ==
PROVIDERS: Physician Assistant; Emergency Provider Preventive Medicine Aerospace Medicine
DX: F41.9 Anxiety disorder, unspecified (principal); R20.2 Paresthesia of skin; F10.239 Alcohol dependence with withdrawal, unspecified
CPT/HCPCS: 36415; 80053; 80307; 84443; 85025; 99283; A9270

== ENCOUNTER 2022-07-08 03:13 | Emergency (ER) | payer OTHER, SELFPAY ==
[2022-07-08] VITALS (8 sets, daily range): BP systolic 121–130; BP diastolic 67–81; PULSE 58–83; RESP 9–19; TEMP 36.8; O2SAT 97–100
--- NOTE | 2022-07-08 05:15 | ED.DIZZY ---
HPI - Dizziness General Chief Complaint: Dizziness Stated Complaint: DIZZINESS Time Seen by Provider: 07/08/22 03:18 History of Present Illness HPI Narrative: 32-year-old male presenting stating that he feels dizzy sometimes; no symptoms currently. He is homeless and looking for a place to sleep through the night. Related Data Home Medications Medication Instructions Recorded Confirmed lisdexamfetamine 30 mg capsule mg 07/08/22 (Vyvanse) Allergies Allergy/AdvReac Type Severity Reaction Status Date / Time haloperidol Allergy Unknown Unknown Verified 07/08/22 03:35 ketorolac Allergy Unknown Unknown Verified 07/08/22 03:35 tramadol Allergy Unknown Unknown Verified 07/08/22 03:35 AMOXICILLIN TRIHYDRATE Allergy Intermediate Hives / Uncoded 04/22/22 19:34 Red Face POTASSIUM CLAVULANATE Allergy Mild Unknown Uncoded 04/22/22 19:34 HALOPERIDOL LACTATE Allergy Unknown Unknown Uncoded 04/22/22 19:34 Review of Systems Review of Systems: CONST: No fever. HEENT: No sore throat C/V: No chest pain RESP: No shortness of breath GI: No abdominal pain : No dysuria. M/S: No joint pain. SKIN: No rash. NEURO: [No headache or focal numbness or weakness]; sometimes feels dizzy PSYCH: [No depression] PMFSH Past Medical History Medical History Anxiety Bipolar disorder PTSD (post-traumatic stress disorder) Seizures Surgical History Surgical History Hx of appendectomy Social History Social History Smoking status: Unknown if ever smoked Alcohol intake: current Substance use type: does not use Gender identity (if verbalized by the patient): Male Exam Narrative: EXAMINATION OF ORGAN SYSTEMS/BODY AREAS: Constitutional: Vital signs per nursing GENERAL:[No acute distress, non-toxic appearing.] Resting comfortably in bed. HEAD: Normal with no signs of head trauma. EYES: EOMI, conjunctiva normal ENT: Hearing grossly intact LUNGS: Nonlabored breathing. HEART: [Regular rate and rhythm] ABD: [Soft], [nontender to palpation] EXT: Normal range of motion SKIN: [No rashes or lesions.] NEURO: [Currently sleepy but awakes easily to voice and answering questions. No gross focal sensory or strength deficits.] PSYCH: Normal affect Course Vital Signs Vital signs: Vital Signs Temperature 98.3 F 07/08/22 03:15 Pulse Rate 62 07/08/22 03:15 Respiratory Rate 16 07/08/22 03:15 Blood Pressure 130/80 07/08/22 03:15 Pulse Oximetry 100 07/08/22 03:15 Oxygen Delivery Room Air 07/08/22 03:15 Temperature 98.3 F 07/08/22 03:15 Pulse Rate 59 L 07/08/22 06:01 Respiratory Rate 18 07/08/22 06:01 Blood Pressure 121/68 07/08/22 06:01 Pulse Oximetry 97 07/08/22 06:01 Oxygen Delivery Room Air 07/08/22 03:15 MDM - Dizziness MDM Narrative Medical decision making narrative: 32-year-old male who is homeless, presents after being found shivering at a bus stop, he states that he occasionally has dizziness, but he is not having any symptoms now, he is hungry and tired and sleepy. Vital signs stable, normal cardiopulmonary and neurologic exam, he is calm and cooperative answering questions, denies any suicidal ideation. Denies any symptoms at this time. Denies any recent drug use. I have low concern for any emergent medical condition at this time given his benign vitals and normal exam. He will be fed here and allowed to sleep, and can always return if he has any symptoms. Discharge Plan Discharge Clinical Impression: Dizziness Patient Disposition: Home, Self-Care Condition: Stable Instructions: Antibiotic Form, Dizziness (ED) Additional Instructions: Please follow up with the PCP; you can always return for any further issues. Prescriptions: No Action chlordiazepoxide HCl 25 mg capsule 25 mg PO BID PRN (Reason: alcoho
--- NOTE | 2022-07-08 08:00 | PC.NURSE ---
Pt given breakfast tray at this time
== END 2022-07-08 08:29 | disposition home or self-care (01) ==
PROVIDERS: Emergency Provider Emergency Medicine
DX: R42 Dizziness and giddiness (principal); F41.9 Anxiety disorder, unspecified; F31.9 Bipolar disorder, unspecified
CPT/HCPCS: 99283

== ENCOUNTER 2022-08-16 21:11 | Emergency (ER) | payer OTHER, SELFPAY ==
--- NOTE | ~2022-08-16 | CT_ITS ---
EXAMINATION: CT brain wo con DATE: 08/16/2022 22:03 INDICATION: Headache. TECHNIQUE: Computed tomography (CT) of the head was performed without intravenous contrast. The mA wa s adjusted according to patient size. Iterative reconstruction technique was employed. The dose-lengt h product was 681.00 mGy-cm. COMPARISON: Head CT 07/11/2020 FINDINGS: There is no intracranial hemorrhage, acute infarction, or abnormal intracranial mass lesion . The ventricles are normal in size. There is mild mucosal thickening in the paranasal sinuses. The m astoid air cells are normal. IMPRESSION: 1. Normal brain. Reviewed, dictated and finalized at location A. F TECHNICIAN IMPRESSION: 1. Normal brain.
--- NOTE | ~2022-08-16 | XR_ITS ---
EXAMINATION: XR chest 2V DATE: 08/16/2022 22:13 INDICATION: Chest pain. TECHNIQUE: Frontal and lateral views of the chest were obtained. COMPARISON: Chest single view 07/11/2020 FINDINGS: There is no pneumonia, pleural effusion, pneumothorax or the heart size is normal. The endp lates are hyperdense in the spine. IMPRESSION: 1. Chronic hyperdensity of the endplates in the spine, consistent with osteopetrosis versus hyperpara thyroidism. Reviewed, dictated and finalized at location A. PROJECT MANAGER IMPRESSION: 1. Chronic hyperdensity of the endplates in the spine, consistent with osteopet rosis versus hyperparathyroidism.
[2022-08-16 21:19] VITALS: BP 135/90; PULSE 90; RESP 18; TEMP 36.4; O2SAT 99
--- NOTE | 2022-08-16 21:31 | ECG_ITS ---
Measurements Intervals [place] Rate: 80 P: 52 AR: 131 QRS: 53 QRSD: 86 T: 28 QT: 384 QTc: 445 Interpretive Statements SINUS RHYTHM VENTRICULAR PREMATURE COMPLEX BASELINE ARTIFACT- I, III, AVR, AVL, AVF, V1-V2 BORDERLINE ECG COMPARED TO ECG 07/11/2020 18:44:55 NO SIGNIFICANT CHANGES Electronically Signed On 08-17-2022 7:46:44 PHYSICAL SECURITY MANAGER by Akil Moon D.O.
--- NOTE | 2022-08-16 21:47 | ED.GENADULT ---
HPI - General Adult General Chief complaint: Psychiatric Symptoms Stated complaint: headache Time Seen by Provider: 08/16/22 21:25 Source: RN notes reviewed History of Present Illness HPI narrative: Patient presents emergency department from bus stop via EMS for palpitations and headache. Patient states over the past several weeks has been having heart palpitations states he feels like his heart is skipping states that these episodes are intermittent and have been ongoing for the past several weeks he also notes an intermittent headache that is around the right side of his head and goes down into his neck is also intermittent described as aching in nature. Denies any fevers or chills he denies any vision changes he denies any numbness or weakness of the extremities denies any chest pain shortness of breath abdominal pain nausea vomiting or diarrhea. States that he does feel confused at times and when he explains his confusion he states his feeling of being lethargic he has never had a syncopal episode Related Data Home Medications Medication Instructions Recorded Confirmed lisdexamfetamine 30 mg capsule mg 07/08/22 (Vyvanse) Allergies Allergy/AdvReac Type Severity Reaction Status Date / Time haloperidol Allergy Unknown Unknown Verified 07/08/22 03:35 ketorolac Allergy Unknown Unknown Verified 07/08/22 03:35 tramadol Allergy Unknown Unknown Verified 07/08/22 03:35 AMOXICILLIN TRIHYDRATE Allergy Intermediate Hives / Uncoded 04/22/22 19:34 Red Face POTASSIUM CLAVULANATE Allergy Mild Unknown Uncoded 04/22/22 19:34 HALOPERIDOL LACTATE Allergy Unknown Unknown Uncoded 04/22/22 19:34 Review of Systems Review of Systems: Gen.: Denies fevers or chills Eyes: Denies eye pain or visual change ENT: Denies congestion Respiratory: Denies shortness of breath or cough CV: Denies chest pain palpitation GI: Denies abdominal pain nausea, emesis or diarrhea Musculoskeletal: Denies back pain or muscle pain Neuro: Reports headache Skin: Denies rash Except as documented, all other systems reviewed and negative [facility] Past Medical History Medical History Anxiety Bipolar disorder PTSD (post-traumatic stress disorder) Seizures Surgical History Surgical History Hx of appendectomy Social History Social History Smoking status: Unknown if ever smoked Alcohol intake: current Substance use type: amphetamines Gender identity (if verbalized by the patient): Male Exam Narrative: APPEARANCE: No acute distress, nontoxic, resting in bed EYES: EOMI, PERRL HEENT: Normocephalic, atraumatic, TMs clear bilaterally nares patent oral mucosa moist RESPIRATORY: No respiratory distress Clear to auscultation bilaterally with no rhonchi wheezing or rales. CARDIOVASCULAR: Regular rate and rhythm without murmurs rubs or gallops. ABDOMINAL: Soft, nontender, nondistended, no rebound or guarding MUSCULOSKELETAl: Moves all extremities. No clubbing, cyanosis or edema. NEURO: Awake and alert x 4 Following commands, speech normal, no focal deficits, muscle strength 5 out of 5 bilateral upper and lower extremities SKIN:: Warm, dry. No rashes lesions or abrasions PSYCHIATRIC: Normal affect/mood, Course Course Emergency Course: Went to reevaluate patient discussed with him results of work-up and plan for discharge the patient at this time stating that he is having suicidal ideation states he has been depressed and has been having thoughts of wanting to harm himself this time will add additional labs and have patient evaluated by crisis corporate counselor Patient is medically cleared for psychiatric placement and transport Patient states that he is homeless reviewed old records patient has had similar episodes of going to be discharged and then noting suicidal ideation in past But further discussions
[2022-08-16 22:02] LABS: Basophils Percent Auto 0.3 % (0.2-1.2); Eosinophils Percent Auto 0.2 % (0-4.4); Hematocrit 44.6 % (42.0-52.0); Hemoglobin 14.8 g/dL (14.0-18.0); Immature Granulocyte Absolute 0.04 K/mm3 (0.00-0.031); Immature Granulocyte Percent A 0.3 % (0-0.5); Lymphocytes Absolute Auto 1.65 K/mm3 (0.9-3.2); Lymphocytes Percent Auto 14.4 % (18.3-44.2); Mean Corpuscular HGB Conc 33.2 g/dl (32-36); Mean Corpuscular Hemoglobin 29.4 pg (26-34); Mean Corpuscular Volume 88.7 fl (80-100); Mean Platelet Volume 8.7 fl (7.4-10.4); Monocytes Absolute Auto 0.8 K/mm3 (0.1-0.6); Monocytes Percent Auto 6.5 % (2.6-8.5); Neutrophils Percent Auto 78.3 % (45.5-73.1); Platelet Count Result 259 k/mm3 (150-375); Red Blood Count 5.03 M/mm3 (4.6-6.20); Red Cell Distribution Width 13.5 % (11.5-14.5); White Blood Count 11.5 K/mm3 (4.5-10.0)
[2022-08-16 22:14] LABS: Alanine Aminotransferase 23 U/L (6-50); Albumin Level 5.1 g/dL (3.5-5.1); Alkaline Phosphatase 111 U/L (38-126); Anion Gap 8 mmol/L (8-16); Aspartate Amino Transferase 64 U/L (17-59); Blood Urea Nitrogen 13 mg/dL (9-20); Calcium 9.3 mg/dL (8.4-10.2); Carbon Dioxide 30 mmol/L (22-30); Chloride 97 mmol/L (98-107); Estimated Glomerular Filt Rate > 60; Glucose 71 mg/dL (65-110); INR 1.1; Lipase 28 U/L (23-300); Potassium 3.9 mmol/L (3.4-5.0); Prothrombin Time 13.5 Seconds (11.1-14.7); Sodium 135 mmol/L (137-145)
[2022-08-16 22:15] LABS: Magnesium 2.1 mg/dL (1.6-2.3)
[2022-08-16 22:16] LABS: Partial Thromboplastin Time 30.4 SECONDS (22.3-36.8)
[2022-08-16 22:26] LABS: Troponin I < 0.012 ng/mL (0.000-0.034)
[2022-08-16] MEDS: SODIUM CHLORIDE 0.9% IV 1,000 ML 999 ML IV CONT (22:28)
[2022-08-16 23:08] LABS: Add Urine Microscopic? YES; Appearance Urine Clear (Clear); Bilirubin Urine Negative (Negative); Blood Urine Trace-Intact (Negative); Color Urine Yellow (Yellow); Glucose Urine UA Negative (Negative); Ketones Urine 2+ mg/dL (Negative); Leukocyte Esterase Ur Negative LEU/UL (Negative); Nitrate Urine Negative (Negative); Protein Urine Negative (Negative); Specific Grav Ur >= 1.030 (1.001-1.035); Urobilinogen Urine 0.2 mg/dL (<2.0)
--- NOTE | 2022-08-16 23:19 | PC.NURSE ---
Pt asks for an update,and when he learns that there is nothing remarkable about his work-up. He says, Really, Im just cold and tired of sleeping on the street. I need to be admitted. Physician informed.
[2022-08-16 23:26] LABS: Bacteria Urine Trace /hpf; Mucus Urine Rare /lpf; RBC Urine 0-2 /hpf (0-2); WBC Urine 0-3 /hpf
--- NOTE | 2022-08-17 00:45 | PC.NURSE ---
When pt learns he will be discharged he now claims he is suicidal. Psychiatric eval initiated.
[2022-08-17 01:18] LABS: Ethanol < 10 mg/dL (<10)
[2022-08-17 01:22] LABS: Barbiturate Screen Urine Negative (Negative); Benzodiazepines Screen Urine Negative (Negative)
[2022-08-17 01:25] LABS: Cannabinoid Screen Urine Negative (Negative); Cocaine Screen Urine Negative (Negative); Methadone Screen Urine Negative (Negative); Opiate Screen Urine Negative (Negative); Phencyclidine Screen Urine Negative (Negative)
[2022-08-17 01:31] LABS: Influenza A QL RT-PCR Negative (Negative); Influenza B QL RT-PCR Negative (Negative); SARS-CoV-2 RNA PCR Negative
[2022-08-17 02:09] LABS: Amphetamine Screen Urine Positive (Negative)
[2022-08-17 02:38] LABS: Troponin I < 0.012 ng/mL (0.000-0.034)
--- NOTE | 2022-08-17 05:50 | PC.NURSE ---
patient has called out several times since being cleared by crisis asking about being transferred to a psych hospital patient has been educated several times that he is not going to a psych hospital that he was cleared by crisis and does not meet criteria for admission. patient educated that staff was looking for homeless shelters and community resources.
--- NOTE | 2022-08-17 08:18 | PC.NURSE ---
Called placed to Crisis for second eval.
[2022-08-17 08:58] VITALS: BP 116/74; PULSE 64; RESP 18; O2SAT 100
--- NOTE | 2022-08-17 10:38 | PC.NURSE ---
Crisis here to reevaluate pt. Pt will be placed for voluntary admit to psych facility.
--- NOTE | 2022-08-17 11:05 | PC.NURSE ---
precautionary reg diet food tray ordered
--- NOTE | 2022-08-17 11:06 | PC.NURSE ---
Assumed care of pt, pt moved from 3 to room 15, pt ambulatory and cooperative. Belongings remain in cabinet between 3/. Pt A&Ox4 and in no obvious distress. Discussed POC, vol. placement pending accepting facility. Per Darya MAYFIELD, Crisis team was here for eval and began seeking placement, faxed chart to facilities and waiting to hear back. Lunch tray ordered for pt, no questions or concerns at this time.
[2022-08-17 14:25] VITALS: BP 111/61; PULSE 60; RESP 15; O2SAT 99
--- NOTE | 2022-08-17 16:10 | PC.NURSE ---
[facility] declined pt
--- NOTE | 2022-08-17 16:31 | PC.NURSE ---
reg diet precautionary tray ordered
[2022-08-17 16:56] VITALS: BP 134/84; PULSE 84; RESP 16; TEMP 37; O2SAT 99
--- NOTE | 2022-08-17 17:20 | PC.NURSE ---
Bls transfer to [facility]-declined [facility] ETA-SUP Approval Trip # [id number] [facility] - Declined [facility] - Declined [facility] - Declined [facility] - Declined
--- NOTE | 2022-08-17 17:28 | PC.NURSE ---
Janelle at [facility] called back and responded that they do not have bed available for the pt tonight and we can try tomorrow.
--- NOTE | 2022-08-17 17:42 | PC.NURSE ---
[facility] accepted transfer to [facility] 7a 08/18/2022 Trip # [id number]
--- NOTE | 2022-08-17 17:54 | PC.NURSE ---
per [facility] cellar charge hand, claudia, lala goff and with dr miky barker'kierra- approval for [facility] to transport pt to the [facility] ETA 30min
--- NOTE | 2022-08-17 18:30 | PC.NURSE ---
[facility] called for update on pt status/transport time. Pt currently awaiting ride, ED has ride arranged and updated [facility] as requested.
== END 2022-08-17 18:46 ==
LOC: ANHED 21:33
PROVIDERS: Emergency Provider Emergency Medicine
DX: R00.2 Palpitations (principal); R51.9 Headache, unspecified; R45.851 Suicidal ideations; F32.9 Major depressive disorder, single episode, unspecified; Z20.822 Contact with and (suspected) exposure to COVID-19; F41.9 Anxiety disorder, unspecified
CPT/HCPCS: 36415; 70450; 71046; 80053; 80307; 81001; 83690; 83735; 84443; 84484; 85025; 85610; 85730; 87636; 93005; 96360; 96361; 99285; J7030

== ENCOUNTER 2025-06-20 20:03 | Emergency (ER) | payer OTHER, SELFPAY ==
[2025-06-20 20:12] VITALS: BP 125/72; PULSE 97; RESP 16; TEMP 36.6; O2SAT 96
--- OUTSIDE RECORDS SUMMARY | 2025-06-20 20:25 | XMS_ITS | Encounter Summary ---
Author Organization [facility] Care Team Providers Care Social Professionals Name Role Phone No, Physician Primary Care Provider [phone] Unknown, Notinfile Primary Care Provider Unavail able Miscellaneous, Not In File Primary Care Provider Unavailable No, Physician Unavailable Unknown, Notinfile Unavailable Unavailable No, Physician Primary Care Provider [phone] Encounter Details Date Type Department Care Team (Latest Contact Info) Description 12/01/2017 Orders Only [facility]IN[facility] ProviderMadan MD [address] [place] [id number] Social History Tobacco Use Types Packs/Day Years Used Date Smoking Tobacco: Every Day Smokeless Tobacco: Never Sex and Gender Information Value Date Recorded Sex Assigned at Not on file Legal Sex Male 2:43 AM PIPE FITTER WELDING Gender Identity Not on file Sexual Orientation Not on file documented as of this encounter Plan of Treatment Not on file documented as of this encounter Procedures Procedure Name Priority Date/Time Associated Diagnosis Comments SCAN - LABS 12/01/2017 12:00 AM CDT documented in this encounter Results * SCAN - LABS (12/01/2017 12:00 AM CDT) Narrative 12/01/2017 12:00 AM CDT Ordered by an unspecified provider. Historical Provider Final Res ult documented in this encounter Visit Diagnoses Not on filedocumented in this encounter Additional Health Concerns Infection Onset Date Last Indicated Resolved Time COVID: Suspected 06/29/2021 06/29/2021 06/29/2021 5:27 AM PIPE FITTER WELDING Exposure, COVID-19 Comment:08/05/2021 per nursing staff pt denies being exposed to covid in last 14 days Ira Reyes, TRAN Added automatically based on COVID19 lab answers indicating exposure risk 07/27/2021 07/27/2021 08/05/2021 8:[address] COVID: Suspected 07/27/2021 07/27/2021 07/27/2021 12:12 PM PIPE FITTER WELDING COVID: Suspected 08/07/2021 08/07/2021 08/07/2021 8:31 AM PIPE FITTER WELDING COVID: Suspected 02/26/2022 02/26/2022 02/26/2022 1:55 AM CDT COVID: Suspected 05/14/2022 05/14/2022 05/14/2022 6:53 AM CDT COVID: Suspected 11/10/2023 11/10/2023 11/10/2023 2:30 PM CDT COVID: Suspected 12/19/2023 12/19/2023 12/19/2023 9:44 PM CDT COVID: Suspected 01/18/2024 01/18/2024 01/19/2024 7:53 AM CDT COVID: Suspected 07/29/2024 07/29/2024 07/29/2024 10:53 AM PIPE FITTER WELDING documented as of this encounter Care Teams Social Professionals Relationship Specialty Start Date End Date No, Physician PCP - General 07/16/17 03/24/22 Unknown, Notinfile PCP - General 03/25/22 12/11/23 Miscellaneous, Not In File PCP - General 12/12/23 No, Physician PCP - General 12/04/24 No, Physician 03/25/22 12/11/23 Unknown, Notinfile 12/12/23 documented as of this encounter
--- OUTSIDE RECORDS SUMMARY | 2025-06-20 20:25 | XMS_ITS | Encounter Summary ---
Author Organization [facility] Care Team Providers Care Electric Razor Mechanic Name Role Phone No, Physician Primary Care Provider [phone] Unknown, Notinfile Primary Care Provider Unavail able Miscellaneous, Not In File Primary Care Provider Unavailable No, Physician Unavailable Unknown, Notinfile Unavailable Unavailable No, Physician Primary Care Provider [phone] Encounter Details Date Type Department Care Team (Latest Contact Info) Description 11/26/2017 Orders Only [facility] CLINCONV ProviderMadan MD [address] [place] [id number] Social History Tobacco Use Types Packs/Day Years Used Date Smoking Tobacco: Every Day Smokeless Tobacco: Never Sex and Gender Information Value Date Recorded Sex Assigned at Not on file Legal Sex Male 2:43 AM CLIENT TECHNOLOGIES SPECIALIST Gender Identity Not on file Sexual Orientation Not on file documented as of this encounter Plan of Treatment Not on file documented as of this encounter Procedures Procedure Name Priority Date/Time Associated Diagnosis Comments CARDIOLOGY REPORT 12/01/2017 12: 00 AM CDT documented in this encounter Results * CARDIOLOGY REPORT (12/01/2017 12:00 AM CDT) Anatomical Region Laterality Modality Other Narrative 12/01/2017 12:00 AM CDT Ordered by an unspecified provider. Historical Provider [facility] JOSS LIRIANO Final Result documented in this encounter Visit Diagnoses Not on filedocumented in this encounter Additional Health Concerns Infection Onset Date Last Indicated Resolved Time COVID: Suspected 06/29/2021 06/29/2021 06/29/2021 5:27 AM CLIENT TECHNOLOGIES SPECIALIST Exposure, COVID-19 Comment:08/05/2021 per nursing staff pt denies being exposed to covid in last 14 days Ira Reyes, RN Added automatically based on COVID19 lab answers indicating exposure risk 07/27/2021 07/27/2021 08/05/2021 8:[address] COVID: Suspected 07/27/2021 07/27/2021 07/27/2021 12:12 PM CLIENT TECHNOLOGIES SPECIALIST COVID: Suspected 08/07/2021 08/07/2021 08/07/2021 8:31 AM CLIENT TECHNOLOGIES SPECIALIST COVID: Suspected 02/26/2022 02/26/2022 02/26/2022 1:55 AM CDT COVID: Suspected 05/14/2022 05/14/2022 05/14/2022 6:53 AM CDT COVID: Suspected 11/10/2023 11/10/2023 11/10/2023 2:30 PM CDT COVID: Suspected 12/19/2023 12/19/2023 12/19/2023 9:44 PM CDT COVID: Suspected 01/18/2024 01/18/2024 01/19/2024 7:53 AM CDT COVID: Suspected 07/29/2024 07/29/2024 07/29/2024 10:53 AM CLIENT TECHNOLOGIES SPECIALIST documented as of this encounter Care Teams Electric Razor Mechanic Relationship Specialty Start Date End Date No, Physician PCP - General 07/16/17 03/24/22 Unknown, Notinfile PCP - General 03/25/22 12/11/23 Miscellaneous, Not In File PCP - General 12/12/23 No, Physician PCP - General 12/04/24 No, Physician 03/25/22 12/11/23 Unknown, Notinfile 12/12/23 documented as of this encounter
--- OUTSIDE RECORDS SUMMARY | 2025-06-20 20:25 | XMS_ITS | Patient Health Record ---
Author Organization [facility] Address [address] [place] [address] Care Team Providers Care Ladler Name Role Phone [employer], [facility] Primary Care Mera mackey Unavailable Reason For Referral No Information Plan Of Treatment No Information Insurance Providers Payer Name Payer Address Payer Phone Subscriber Number Group Number Insured Name Patient Relationship to Insured Coverage Start Date Coverage End Date MEDICAID [address] [phone] [id number] Joel Harp Self - patient is the insured
--- OUTSIDE RECORDS SUMMARY | 2025-06-20 20:26 | XMS_ITS | Clinical Summary ---
Author Organization [facility] Address [address] [place] [address] Care Team Providers Care Manager Environmental Services Name Role Phone Unknown, Notinfile Unavailable Unavailable No, Physician Primary Care Provider [phone] Allergies Active Allergy Reactions Criticality Noted Date Comments Amoxicillin-Pot Clavulanate Hives Medium Rxn when he was a baby. Tried amoxicillin a few yrs ago and had a similar rxn. Clavulanic Acid Rash Medium 09/01/2019 Rash Haloperidol Muscle pain Medium 05/12/2021 Ketorolac Tromethamine Rash Medium 04/11/2014 Rash Mushroom Other (See comments) Low 05/23/2022 Pt just states I'm just allergic Penicillins Hives,Other (See comments),Rash High 07/19/2010 Rash Tramadol Hives,Muscle pain,Other (See comments) Medium 01/27/2016 seizure like symptoms Hives Medications No known medications Active Problems Problem Noted Date Diagnosed Date Suicidal ideation 01/19/2024 Amphetamine delirium 07/20/2022 Persistent mood disorder 07/20/2022 Routine health maintenance 05/24/2022 Elevated blood pressure reading 05/24/2022 Assessment & Plan (05/24/2022 12:22 PM CDT): Chart hx of HTN but BP here normal/mild elevation. -monitor off therapy for now. 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 Not currently on medications. Currently under increased psychosocial stress (family, legal, home, school, financial). Presented for hydroxyzine vs ativan prescription. Reports use of meth/ice 1-2/week, alcohol 2-3 drinks/week, and MJ once per month. Has insight that these can increase anxiety but decreased judgement in reducing/ceasing substance use. Along with this diagnosis, also has polysusbtance abuse as outlined above and cluster B traits of narcissism and borderline reactivity. - hydroxyzine 25mg daily - will discharge home with 14d supply Severe amphetamine substance use disorder 2020 Acute intractable headache 01/17/2020 Borderline personality disorder 10/22/2016 Polysubstance abuse 01/28/2016 Anxiety disorder, unspecified 01/28/2016 Cocaine abuse 04/21/2014 Suicide attempt by drug ingestion 04/30/2012 Benzodiazepine abuse 06/16/2011 Benzodiazepine dependence 06/16/2011 Suicidal behavior 06/16/2011 Depression, unspecified 06/16/2011 Passive suicidal ideations Resolved Problems Problem Noted Date Diagnosed Date Resolved Date Suicidal ideation 07/23/2021 05/26/2022 Assessment & Plan (05/24/2022 12:19 PM CDT): Per ED account. Pt denies and becomes defensive -mgt per primary team Encounters Date Type Department Care Team Description 05/11/2025 7:06 PM CDT - 05/12/2025 6:51 PM CDT Emergency [address] [address] Randy Angela MD Mecker, Robert W. Jr., MD Abbeg, Kirill Gold, DO Suicide ideation (Primary Dx) Discharge Disposition: Discharge to psych hospital or psych unit 04/18/2025 12:10 PM CDT - 04/18/2025 4:58 PM CDT Emergency [address] [address] Discharge Disposition: Left without being seen from Last 3 Months Immunizations Immunization Administration Dates Next Due Influenza, Unspecified 01/21/2021 Surgical History Surgery Date Site/Laterality Comments TONSILLECTOMY AND ADENOIDECTOMY APPENDECTOMY Medical History Medical History Date Comments Anxiety Depression HTN (hypertension) Depression Drug use Alcoholic Social History Tobacco Use Types Packs/Day Years Used Date Smoking Tobacco: Every Day Cigarettes Smokeless Tobacco: Never Tobacco Cessation:Ready to Q uit: Not Asked; Counseling Given: Not Answered Comments:two or three cigarettes a day Alcohol Use Standard Drinks/Week Comments Yes 0 (1 standard drink = 0.6 oz pur e alcohol) a few cans of beer a day [facility] AISities Answer Date Recorded In the past 12 months has e [employer], or water [employer] threatened to shut off services in your home? Patient declined 01/20/2024 Humiliation, Afraid, Rape, and Kick questionnair e Answer Date Recorded Within the last year, have y ou been afraid of your partner or ex-partner? Patient declined 01/20/2024 Within the last year, have y ou been humiliated or emotionally abused in other ways by your partner or ex-partner? Patient declined 01/20/2024 Within the last year, have y ou been kicked, hit, slapped, or otherwise physically hurt by your partner or ex-partner? Patient declined 01/20/2024 Within the last year, have y ou been raped or forced to have any kind of sexual activity by your partner or ex-partner? Patient declined 01/20/2024 Social Connection and Isolation Panel Answer Date Recorded In a typical week, how many times do you talk on the phone with family, friends, or neighbors? Patient declined 01/20/2024 How often do you get togethe r with friends or relatives? Patient declined 01/20/2024 How often do you attend bahai or jewish serv ices? Patient declined 01/20/2024 Do you belong to any clubs o r organizations such as bahai groups, unions, fraternal or athletic groups, or school groups? Patient declined 01/20/2024 How often do you attend meet ings of the clubs or organizations you belong to? Patient declined 01/20/2024 Are you , , di vorced, , never , or living with a partner? Patient declined 01/20/2024 AUDIT-C Answer Date Recorded Q1: How often do you have a drink containing alc ohol? Patient declined 01/20/2024 Q2: How many drinks containi ng alcohol do you have on a typical day when you are drinking? Patient declined 01/20/2024 Q3: How often do you have si x or more drinks on one occasion? Patient declined 01/20/2024 Overall Financial Resource Strain (CARDIA) Answe r Date Recorded How hard is it for you to pa y for the very basics like food, housing, medical care, and heating? Patient declined 01/20/2024 PHQ-2 Answer Date Recorded PHQ-2 Total Score (If total score is 3 or more points, staff should administer the PHQ-9) 0 01/19/[facility] - Occupational Stress Questionnaire Answer Date Recorded Do you feel stress - tense, restless, nervous, or anxious, or unable to sleep at night because your mind is troubled all the time - these days? Patient declined 01/20/2024 Exercise Vital Sign Answer Date Recorde d On average, how many days pe r week do you engage in moderate to strenuous exercise (like a brisk walk)? Patient declined 01/20/2024 On average, how many minutes do you engage in exercise at this level? Patient unable to answer 01/20/2024 Hunger Vital Sign Answer Date Recorded Within the past 12 months, y ou worried that your food would run out before you got the money to buy more. Patient declined Within the past 12 months, t he food you bought just didn't last and you didn't have money to get more. Patient declined 12/2023 PRAPARE - Transportation Answer Date Re corded In the past 12 months, has l ack of transportation kept you from medical appointments or from getting medications? Patient declined 01/20/2024 In the past 12 months, has l ack of transportation kept you from meetings, work, or from getting things needed for daily living? Patient declined 01/20/2024 Housing Stability Vital Sign Answer Wilbert e Recorded In the last 12 months, was t here a time when you were not able to pay the mortgage or rent on time? Patient refused 08/06/20 21 In the last 12 months, how many places have you lived? 1 08/06/2021 In the last 12 months, was t here a time when you did not have a steady place to sleep or slept in a usp (including now)? Patient refused 08/06/2021 PHQ-9 Answer Date Recorded PHQ-9 Total Score 1 01/19/2024 Housing Stability Vital Sign Answer Wilbert e Recorded In the last 12 months, was t here a time when you were not able to pay the mortgage or rent on time? Patient declined 01/20/20 24 Number of Times Moved in the Last Year Not on fi le 01/20/2024 At any time in the past 12 m [facility], were you homeless or living in a usp (including now)? Patient declined 01/20/2024 Personal Safety Answer Date Recorded Have you ever been in or are you currently in a harmful physical or emotional relationship or is someone making you feel afraid or unsafe? Denies 05/12/2025 Sex and Gender Information Value Date Recorded Sex Assigned at Not on file Legal Sex Male 2:43 AM NIGHT ORDER SELECTOR Gender Identity Not on file Sexual Orientation Not on file Last Filed Vital Signs Vital Sign Reading Time Taken Comments Blood Pressure 120/55 05/12/2025 2:49 PM CDT Pulse 67 05/12/2025 2:49 PM CDT Temperature 37.1 C (98.8 F) 05/12/2025 2:49 PM CDT Respiratory Rate 18 05/12/2025 2:49 PM CDT Oxygen Saturation 99% 05/12/2025 2:49 PM CDT Inhaled Oxygen Concentration - - Weight 77.1 kg (169 lb 15.6 oz) 025 12:24 PM CDT Height 185.4 cm (6' 1) 01/20/2025 8:07 PM CDT Body Mass Index 22.43 01/20/2025 8:07 PM CDT Plan of Treatment Health Maintenance Due Date Last Done Comments Hepatitis C Screening 1992 Varicella Vaccines (1 of 2 - 13+ 2-dose series) 01/11/2005 Hepatitis B Screening 01/11/2010 Regular Well Visit/Exam 18-64 01/11/2010 Pneumococcal vaccine <65 (1 of 2 - PCV) 01/11/2011 HPV Vaccines (1 - 3-dose SCD M series) 01/11/2019 Depression Screening 01/18/2025 01/19/2024, 01/19/20 24 Influenza Vaccine (#1) 2025 , 09/25/2017, 07/30/2012 DTaP/Tdap/Td Vaccine (4 - Td or Tdap) 01/13/2035 01/13/2025, 11/27/2019, 01/27/2016, Additional history exists Procedures Procedure Name Priority Date/Time Associated Diagnosis Comments POCT GLUCOSE DEVICE Routine 05/12/2025 8 :15 AM CDT XR CHEST 1 VIEW ED 05/12/2025 12:55 AM CDT TROPONIN T HIGH-SENSITIVITY 2-HOUR Timed 05/11/2025 9:23 PM CDT DRUGS OF ABUSE SCREEN, URINE WITHOUT CONFIRMATION STAT 05/11/2025 8:25 PM CDT URINALYSIS AND REFLEX TO MICROSCOPIC AND CULTURE STAT 05/11/2025 8:25 PM CDT EGFR STAT 05/11/2025 7:37 PM CDT DIFFERENTIAL AUTO STAT 05/11/2025 7:3 7 PM CDT SALICYLATE LEVEL STAT 05/11/2025 7:37 PM CDT ETHANOL STAT 05/11/2025 7:37 PM CDT ACETAMINOPHEN LEVEL STAT 05/11/2025 7 :37 PM CDT TROPONIN T HIGH-SENSITIVITY SERIES (BASELINE, 2HR, 4HR, 6HR) STAT 05/11/2025 7:37 PM CDT COMPREHENSIVE METABOLIC PANEL STAT 05/11/2025 7:37 PM CDT CBC WITH AUTO DIFFERENTIAL STAT 05/11/2025 7:37 PM CDT ECG 12-LEAD STAT 05/11/2025 7:30 PM CDT from Last 3 Months Results * POCT glucose (05/12/2025 8:15 AM CDT) Glucose, POC 93 70 - 199 mg/dL Blood 05/12/2025 8:15 AM CDT 05/12/2025 8:15 AM CDT us Davi Hernández Jr., MD LAB POCT ORDERABLES - D EVICE Final Result [facility] [address] [facility] Department [place] [address] * XR Chest 1 Vw Portable (05/12/2025 12:55 AM CDT) Anatomical Region Laterality Modality Body, Chest N/A Computed Radiogr aphy 05/12/2025 12:5 8 AM CDT Narrative 05/12/2025 1:05 AM CDT EXAM DESCRIPTION: XR CHEST 1 VIEW REASON FOR STUDY: chest pain 35 y.o. male with hx as below, who presents with c/o SI. The patient is presenting with chest pain and shortness of breath that began approximately three days ago. The chest pain is described as mild but significant enough to impede walking. The patient also reports experiencing suicidal ideations and feelings of isolation, which they believe may be affecting their mental stability TECHNIQUE: Portable upright AP view of the chest. COMPARISON: 12/19/2023 FINDINGS: LUNGS AND PLEURA: Mbnd-wt-fomtoqwv congestion. No focal opacity, large effusion, or pneumothorax is seen. HEART/MEDIASTINUM: Trachea midline. Cardiac silhouette normal in size. Mediastinal contours appear normal. BONES: Unremarkable. CHEST WALL: Unremarkable. UPPER ABDOMEN: Unremarkable. IMPRESSION: Rmjj-ij-jdfwalax congestion may be exaggerated by portable technique versus mild CHF. THIS IS AN ELECTRONICALLY VERIFIED FINAL REPORT 05/12/2025 1:05 AM - Electronically signed by Joel FLORES T: Report ID: [id number] Reading Location: [place] [address] Procedure Note Joel Valenzuela MD - 05/12/2025 EXAM DESCRIPTION: XR CHEST 1 VIEW REASON FOR STUDY: chest pain 35 y.o. male with hx as below, who presents with c/o SI. The patient is presenting with chest pain and shortness of breath that beganapproximately three days ago. The chest pain is described as mild but significant enoughto impede walking. The patient also reports experiencing suicidal ideationsand feelings of isolation, which they believe may be affecting their mental stability TECHNIQUE: Portable upright AP view of the chest. COMPARISON: 12/19/2023 FINDINGS: LUNGS AND PLEURA: Yvvf-xu-iqkvarps congestion. No focalopacity, large effusion, or pneumothorax is seen. HEART/MEDIASTINUM: Trachea midline. Cardiac silhouette normal in size. Mediastinal contours appear normal. BONES: Unremarkable. CHEST WALL: Unremarkable. UPPER ABDOMEN: Unremarkable. IMPRESSION: Winw-mo-btkjvxqn congestion may be exaggerated by portable technique versus mild CHF. THIS IS AN ELECTRONICALLY VERIFIED FINAL REPORT 05/12/2025 1:05 AM - Electronically signed by Joel Valenzuela M.D. AR T: Report ID: [id number] Reading Location: [place] [address] us Randy Angela MD IMG XR PROCEDURES F inal Result * Troponin T high-sensitivity 2-hour (05/11/2025 9:23 PM CDT) Trop T hs <6 <=22 ng/L Comment: Interpretive Data For further hscTnT resources including the diagnostic algorithm and an aid in interpretation, copy and paste this link: https://nrl.testcatalog.org/show/hsTrop Current Interpretive Data last revised 2020. Trop T hs delta 0 ng/L ELIESER LESLIE Trop T hs interp Insignificant ELIESER LESLIE Blood 05/11/2025 9:23 PM CDT 05/11/2025 9:29 PM CDT us Randy Angela MD LAB BLOOD ORDERABLE S Final Result [facility] [address] [place] [address] * Urinalysis reflex to microscopic and culture Urine (05/11/2025 8:25 PM CDT) Pathologist [facility] Color, ur Yellow Yellow Clarity, ur Clear Clear [facility] Specific gravity, ur 1.019 1.003 - 1.030 [facility] pH, urine 6.5 [facility] Comment: Interpretive Data U rine pH is affected by diet, medications, systemic acid-base disturbances, and renal tubular function. pH may affect urinary stone formation. For example, urine pH below 6.0 may help reduce the tendency for calcium phosphate stones and pH greater than 6.0 may reduce the tendency for uric acid stone formation. Source: [facility] Current Interpretive Data was last revised on 2017 Protein, ur ql Negative Negative [facility] Glucose, ur ql Negative Negative [facility] Ketones, ur Negative Negative [facility] Bilirubin, ur Negative Negative [facility] Blood, ur Negative Negative [facility] Urobilinogen, ur <2.0 <2.0 mg/dL [facility] Nitrite, ur Negative Negative [facility] Leukocyte esterase, ur Negative Negative [facility] UA reflex comment Reflex conditions for microscopic UA and culture not met. [facility] Urine 05/11/2025 8:25 PM CDT 05/11/2025 8:27 PM CDT Randy Angela MD LAB MICROBIOLOGY - GENERAL ORDERABLES Final Result [address] [address] * (ABNORMAL) Drugs of Abuse Screen, Urine without Confirmation (05/11/2025 8:25 PM CDT) Pathologist [facility] Amphetamine, ur Screen Positive, presumptive (A) CutOff 500ng/mL Comment: Interpretive Data - Amphetamines: Samples containing greater than 500 ng/mL d-methamphetamine or other cross-reacting amphetamine compounds are reported as positive. Amphetamine immunoassays are subject to significant false positive rates due to cross-reactivity of non-amphetamine drugs. Confirmatory testing required for definitive results. Current Interpretive Data was last reviewed 2023. Barbiturates, ur Not Detected CutOff 200ng/mL [facility] Comment: Interpretive Data - Barbiturates: Samples containing greater than 200 ng/mL secobarbital or other cross-reacting barbiturate compounds are reported as positive. False positive and false negative results are possible. Confirmatory testing required for definitive results. Current Interpretive Data was last reviewed 2023. Benzodiazepines, ur Screen Positive, presumptive (A) CutOff 100ng/mL [facility] Comment: Interpretive Data - Benzodiazepines: Samples containing greater than 100 ng/mL nordiazepam or other cross-reacting compounds are reported as positive. False positive and false negative results are possible. Confirmatory testing required for definitive results. Current Interpretive Data was last reviewed 2023. Cannabinoids, ur Not Detected CutOff 50 ng/mL [facility] Comment: Interpretive Data - Cannabinoids: Samples containing greater than 50 ng/mL delta-9 THC -COOH or other cross- reacting compounds are reported as positive. False positive and false negative results are possible. Confirmatory testing required for definitive results. Current Interpretive Data was last reviewed 2023. Cocaine, ur Screen Positive, presumptive (A) CutOff 150ng/mL [facility] Comment: Interpretive Data - Cocaine: Samples containing greater than 150 ng/mL benzoylecgonine or other cross- reacting compounds are reported as positive. False positive and false negative results are possible. Confirmatory testing required for definitive results. Current Interpretive Data was last reviewed 2023. Fentanyl, Ur Not Detected CutOff 5 ng/mL [facility] Comment: Interpretive Data - Fentanyl: Samples containing greater than 5 ng/mL norfentanyl, fentanyl, or other cross-reacting fentanyl compounds are reported as positive. False positive and false negative results are possible. Confirmatory testing required for definitive results. Current Interpretive Data was last reviewed 2023. Methadone, ur Not Detected CutOff 300ng/mL [facility] Comment: Interpretive Data - Methadone: Samples containing greater than 300 ng/mL d,l-methadone or other cross-reacting compounds are reported as positive. False positive and false negative results are possible. Confirmatory testing required for definitive results. Current Interpretive Data was last reviewed 2023. Opiates, ur Not Detected CutOff 300ng/mL [facility] Comment: Interpretive Data - Opiates: Samples containing greater than 300 ng/mL morphine or other cross-reacting compounds are reported as positive. False positive and false negative results are possible. Confirmatory testing required for definitive results. Current Interpretive Data was last reviewed 2023. Oxycodone, ur Not Detected CutOff 100ng/mL [facility] Comment: Interpretive Data - Oxycodone: Samples containing greater than 100 ng/mL oxycodone or other cross-reacting compounds are reported as positive. False positive and false negative results are possible. Confirmatory testing required for definitive results. Current Interpretive Data was last reviewed 2023. Phencyclidine, ur Not Detected CutOff 25 ng/mL [facility] Comment: Interpretive Data - Phencyclidine: Samples containing greater than 25 ng/mL phencyclidine or other cross-reacting compounds are reported as positive. False positive and false negative results are possible. Confirmatory testing required for definitive results. Current Interpretive Data was last reviewed 2023. Urine Creatinine 115 mg/dL [facility] Comment: Interpretive Data Urine Creatinine: < 10 mg/dL is extremely dilute = or > 10 but < 20 mg/dL is dilute = or > 20 mg/dL is normal Current Interpretive Data was last revised on 2017. Urine 05/11/2025 8:25 PM CDT 05/11/2025 8:27 PM CDT Narrative [facility] - 05/11/2025 8:56 PM CDT Drug of Abuse screening is performed by immunoassay for medical purposes only. This is not to be used for Pain Management purposes. Randy Angela MD LAB URINE ORDERABLE S Final Result [facility] [address] [facility] Department [place] [address] * Troponin T high-sensitivity series (baseline, 2hr, 4hr, 6hr) (05/11/2025 7:37 PM CDT) Trop T hs <6 <=22 ng/L Comment: Interpretive Data For further hscTnT resources including the diagnostic algorithm and an aid in interpretation, copy and paste this link: https://nrl.testcatalog.org/show/hsTrop Current Interpretive Data last revised 2020. Blood 05/11/2025 7:37 PM CDT 05/11/2025 7:43 PM CDT us Randy Angela MD LAB BLOOD ORDERABLE S Final Result Performing Organization Address City/[facility] Co de Phone Number ELIES[facility] [address] [place] [address] * eGFR (05/11/2025 7:37 PM CDT) eGFR >90 >=60 mL/min/1. 73 m2 Comment: Interpretive Data Reference Interval Normal >/= 90 mL/min/1.73m2 Mildly decreased* 60 - 89 mL/min/1.73m2 Mildly to moderately decreased 45 - 59 mL/min/1.73m2 Moderately to severely decreased 30 - 44 mL/min/1.73m2 Severely decreased 15 - 29 mL/min/1.73m2 Kidney Failure < 15 mL/min/1.73m2 *Relative to young adult level Estimated glomerular filtration rate is determined by the 2020 CKD-EPI equation recommended by the National Kidney [employer] (A Unifying Approach to GFR Estimation: Recommendations of the NKF-ASK Task Force on Reassessing the Inclusion of Race in Diagnosing Kidney Disease, JASN 2020). The CKD-EPI equation should not be used for patients with unstable renal function and has not been validated in children and those over 70. Current interpretive data was last reviewed 2021. Blood 05/11/2025 7:37 PM CDT 05/11/2025 7:43 PM CDT us Randy Angela MD LAB BLOOD ORDERABLE S Final Result Performing Organization Address City/[facility]/ZIP Co de Phone Number ELIESER [address] [place] [address] * Differential, auto (05/11/2025 7:37 PM CDT) Neutrophil abs 4.28 1.50 - 6.50 K/cumm Imm gran abs 0.02 0.00 - 0.10 K/cumm [facility] Lymphocyte abs 1.20 0.80 - 3.30 K/cumm [facility] Monocyte abs 0.40 0.20 - 0.80 K/cumm [facility] Eosinophil abs 0.19 0.00 - 0.50 K/cumm [facility] Basophil abs 0.05 0.00 - 0.10 K/cumm [facility] Neutrophil pct 69.8 % [facility] Comment: Interpretive Data Percent cell count reference ranges are not reported, since discordance with absolute values may lead to misinterpretation of CBC data. Current Interpretive Data was last revised on 2017. Imm gran pct 0.3 % [facility] Comment: Interpretive Data Percent cell count reference ranges are not reported, since discordance with absolute values may lead to misinterpretation of CBC data. Current Interpretive Data was last revised on 2017. Lymphocyte pct 19.5 % [facility] Comment: Interpretive Data Percent cell count reference ranges are not reported, since discordance with absolute values may lead to misinterpretation of CBC data. Current Interpretive Data was last revised on 2017. Monocyte pct 6.5 % [facility] Comment: Interpretive Data Percent cell count reference ranges are not reported, since discordance with absolute values may lead to misinterpretation of CBC data. Current Interpretive Data was last revised on 2017. Eosinophil pct 3.1 % [facility] Comment: Interpretive Data Percent cell count reference ranges are not reported, since discordance with absolute values may lead to misinterpretation of CBC data. Current Interpretive Data was last revised on 2017. Basophil pct 0.8 % [facility] Comment: Interpretive Data Percent cell count reference ranges are not reported, since discordance with absolute values may lead to misinterpretation of CBC data. Current Interpretive Data was last revised on 2017. Blood 05/11/2025 7:37 PM CDT 05/11/2025 7:43 PM CDT us Randy Angela MD LAB BLOOD ORDERABLE S Final Result [address] [place] [address] * (ABNORMAL) CBC with auto differential (05/11/2025 7:37 PM CDT) [facility] WBC 6.14 3.80 - 9.90 K/cumm Hgb 14.7 13.0 - 17.5 g/dL [facility] Hct 45.2 38.9 - 50.3 % [facility] Plt 255 150 - 400 K/cumm [facility] MPV 9.0(L) 9.1 - 12.3 fL [facility] RBC 4.99 4.30 - 5.80 M/cumm [facility] MCV 90.6 81.3 - 96.4 fL [facility] MCH 29.5 27.1 - 33.3 pg [facility] MCHC 32.5 32.3 - 35.7 g/dL [facility] RDW CV 14.1 11.1 - 14.9 % [facility] RDW SD 46.7 35.7 - 48.1 fL [facility] NRBC abs 0.00 0.00 - 0.01 K/cumm [facility] Blood 05/11/2025 7:37 PM CDT 05/11/2025 7:43 PM CDT Randy Angela MD LAB BLOOD ORDERABLE S Final Result [address] [place] [address] * (ABNORMAL) Ethanol (05/11/2025 7:37 PM CDT) [facility] Ethanol 25(H) <=10 mg/dL Comment: Interpretive Data Legal limit of intoxication > or = 80 mg/dL Levels > or = 400 mg/dL are potentially TOXIC. Current interpretive data was last revised on 2018. Blood 05/11/2025 7:37 PM CDT 05/11/2025 7:43 PM CDT Randy Angela MD LAB BLOOD ORDERABLE S Final Result Performing Organization Address [facility] Co de Phone Number ELIESER [address] [place] [address] * Acetaminophen level (05/11/2025 7:37 PM CDT) Acetaminophen <5 <=5 mcg/mL Comment: Interpretive Data Significant hepatic injury may occur and treatment with n-acetyl cysteine is generally recommended if the acetaminophen level exceeds: 150 mcg/mL at 4 hours after ingestion 75 mcg/mL at 8 hours after ingestion 38 mcg/mL at 12 hours after ingestion 19 mcg/mL at 16 hours after ingestion Consult toxicology or poison control ([phone]) for unknown ingestion time. Current interpretive data was last revised 2023. Blood 05/11/2025 7:37 PM CDT 05/11/2025 7:43 PM CDT us Randy Angela MD LAB BLOOD ORDERABLE S Final Result Performing Organization Address [facility] Co de Phone Number ELIESER [address] [address] * Salicylate level (05/11/2025 7:37 PM CDT) Salicylate <1.0 <=1.0 mg/dL Comment: Interpretive Data Toxic: 30 mg/dL or greater. Current interpretive data was last revised 2023. Blood 05/11/2025 7:37 PM CDT 05/11/2025 7:43 PM CDT Randy Angela MD LAB BLOOD ORDERABLE S Final Result Performing Organization Address [facility] Co de Phone Number ELIESER [address] [address] * (ABNORMAL) Comprehensive metabolic panel (05/11/2025 7:37 PM CDT) Sodium 140 135 - 145 mmol/L Potassium, pl 4.2 3.3 - 4.9 mmol/L [facility] Chloride 103 97 - 110 mmol/L [facility] CO2 25 22 - 32 mmol/L [facility] Anion gap 12 2 - 15 mmol/L [facility] BUN 7 6 - 25 mg/dL [facility] Creatinine 0.82 0.80 - 1.30 mg/dL [facility] Glucose 69(L) 70 - 199 mg/dL [facility] Comment: Interpretive Data Fasting glucose >/= 126 mg/dl is diagnostic for diabetes. Fasting is defined as no caloric intake for at least 8 hours. Fasting glucose between 100 mg/dl to 125 mg/dl is diagnostic of prediabetes. In a patient with classic symptoms of hyperglycemia or hyperglycemic crisis, a random glucose >/= 200 mg/dl is diagnostic for diabetes. In the absence of unequivocal hyperglycemia, results should be confirmed by repeat testing. The classification and Diagnosis of Diabetes Diabetes Care 202; 46: S19-S40. Current interpretive data was last revised 2022. Calcium 9.4 8.5 - 10.3 mg/dL [facility] Bilirubin, total 0.3 0.1 - 1.2 mg/dL [facility] Protein, pl 6.7 6.5 - 8.5 g/dL [facility] Albumin 4.1 3.5 - 5.0 g/dL [facility] Alk phos 115 40 - 130 Units/L [facility] ALT 13 7 - 55 Units/L [facility] AST 29 10 - 50 Units/L [facility] Blood 05/11/2025 7:3 7 PM CDT 05/11/2025 7:43 PM CDT us Randy Angela MD LAB BLOOD ORDERABLE S Final Result [facility] [address] [facility] Department [place] [address] * ECG 12 lead (05/11/2025 7:30 PM CDT) Pathologist [facility] Ventricular Rate EKG/Min 80 BPM [facility] Atrial Rate 80 BPM [facility] MI-Interval (MSEC) 128 ms [facility] QRS-Interval (MSEC) 72 ms [facility] QT-Interval (MSEC) 360 ms [facility] QTc 415 ms [facility] P [place] 63 degrees [facility] R [place] 61 degrees [facility] T [place] 48 degrees [facility] Diagnosis Normal sinus rhythm Possible Left atrial enlargement Nonspecific ST abnormality Abnormal ECG When compared with ECG of 18-JAN-2024 22:18, No significant change was found Confirmed by NAILA EVERETT M.D. ([id number]) on 05/12/2025 7:40:43 AM [facility] 05/11/2025 7:30 PM CDT 05/12/2025 7:40 AM CDT us Randy Angela MD ECG ORDERABLES Fin al Result [facility] [place] from Last 3 Months [facility] [employer] [facility] Advance Directives For more information, please contact: [phone] * Full Code (Latest Code Status on File) Date Activated Date Inactivated Comments 01/19/2024 6:52 PM 01/21/2024 1:38 PM * Full Code Date Activated Date Inactivated Comments 05/23/2022 10:42 PM 05/26/2022 2:41 PM * Full Code Date Activated Date Inactivated Comments 08/05/2021 9:19 PM 08/06/2021 6:41 PM * Full Code Date Activated Date Inactivated Comments 01/16/2020 5:10 PM 01/17/2020 4:01 PM Care Teams Manager Environmental Services Relationship Specialty Start Date End Date No, Physician PCP - General 12/04/24 Unknown, Notinfile 12/12/23
--- NOTE | 2025-06-20 20:30 | PC.NURSE ---
Provider notified of pts abx prescription given today for dog bite to right leg and ankle, as well as abdomen. Clincamycin 300 Q6H 10 days docycycline 100 Q12H 10 days pt reported that he started these today at 1730
[2025-06-20 20:46] LABS: Add Urine Microscopic? NO; Appearance Urine Clear (Clear); Glucose Urine UA Negative (Negative); Hematocrit 39.9 % (42.0-52.0); Hemoglobin 13.2 g/dL (14.0-18.0); Immature Granulocyte Percent A 0.5 % (0-0.5); Leukocyte Esterase Ur Negative LEU/UL (Negative); Lymphocytes Absolute Auto 0.79 K/mm3 (0.9-3.2); Mean Corpuscular HGB Conc 33.1 g/dl (32-36); Mean Corpuscular Hemoglobin 29.9 pg (26-34); Mean Corpuscular Volume 90.3 fl (80-100); Nitrate Urine Negative (Negative); Nucleated Red Blood Cells Absolute Auto 0.000 K/mm3 (0.0-0.012); Nucleated Red Blood Cells Perc 0.0 % (0.0-0.2); Platelet Count Result 217 k/mm3 (150-375); Red Blood Count 4.42 M/mm3 (4.6-6.20); Specific Grav Ur 1.007 (1.001-1.035); White Blood Count 15.1 K/mm3 (4.5-10.0)
--- NOTE | 2025-06-20 20:47 | ED_ITS ---
HPI - Psych General Chief Complaint: Psychiatric Symptoms <Inocencia Cerna APRN - Last Filed: 06/21/25 18:08> Stated Complaint: SI/HI <Inocencia Cerna APRN - Last Filed: 06/21/25 18:08> Time Seen by Provider: 06/20/25 20:08 <Inocencia Cerna APRN - Last Filed: 06/21/25 18:08> History of Present Illness HPI Narrative: Patient is a 35-year-old male who presents to the ER with suicidal and homicidal ideation. Patient reports he was discharged from [place] approximately 1 week ago and has felt worse over the last 48 hours. He reports he gets an Invega shot once a month which he does not think is helping his symptoms. Patient also reports he was attacked by a dog earlier today, bit in the thigh, ankle, and stomach. He went to [facility] for treatment where they put him on clindamycin and doxycycline. Patient endorses an extensive mental health history, along with a subdural bleed 9 years ago. He currently endorses pain at each of the sites, along with a headache. Patient reports he took Tylenol prior to coming to the ER. He denies any recent fevers, chest pain, shortness of breath, or urinary symptoms. <Inocencia Cerna APRN - Last Filed: 06/21/25 18:08> Related Data Home Medications: Home Medications ?Medication ?Instructions ?Recorded ?Confirmed ?Last Taken ?Type lisdexamfetamine 30 mg capsule mg 07/08/22 Unknown Hi story (Vyvanse) <Inocencia Cerna APRN - Last Filed: 06/21/25 18:08> Allergies/Adverse Reactions: Allergies Allergy/AdvReac Type Severity Reaction Status Date / Time haloperidol Allergy Unknown Unknown Verified 07/08/22 03:35 ketorolac Allergy Unknown Unknown Verified 07/08/22 03:35 tramadol Allergy Unknown Unknown Verified 07/08/22 03:35 AMOXICILLIN TRIHYDRATE Allergy Intermediate Hives / Uncoded 04/22/22 19:34 Red Face POTASSIUM CLAVULANATE Allergy Mild Unknown Uncoded 04/22/22 19:34 HALOPERIDOL LACTATE Allergy Unknown Unknown Uncoded 04/22/22 19:34 <Inocencia Cerna APRN - Last Filed: 06/21/25 18:08> Review of Systems 2 Review of Systems: All systems reviewed & are unremarkable except as noted in HPI and below <Inocencia Cerna APRN - Last Filed: 06/21/25 18:08> PMFSH Past Medical History Medical History: Medical History PTSD (post-traumatic stress disorder) Bipolar disorder Anxiety Seizures <Inocencia Cerna APRN - Last Filed: 06/21/25 18:08> Surgical History Surgical History: Surgical History Hx of appendectomy <Inocencia Cerna APRN - Last Filed: 06/21/25 18:08> Social History Social History: Social History Alcohol intake: current Substance use type: marijuana and amphetamines Gender identity (if verbalized by the patient): Male <Inocencia Cerna APRN - Last Filed: 06/21/25 18:08> Exam 2 Narrative: GENERAL: Well appearing, well-nourished, non-toxic, in no acute distress. HEAD: Normocephalic, atraumatic. NECK: Supple. No adenopathy, no masses. RESPIRATORY: Airway patent, respirations nonlabored. Clear to auscultation bilaterally, no rales, rhonchi, wheezing. CARDIOVASCULAR: Regular rate and rhythm without murmurs, rubs, or gallops. Peripheral pulses 2+ and equal bilaterally. ABDOMINAL: Soft, nontender, nondistended, no hepatosplenomegaly. Normoactive BS. MUSCULOSKELETAL: Moves all extremities. Strength/ROM intact without gross deformities. SKIN: Warm, dry, normal color. No rashes. Puncture wounds to back of L thigh, L ankle, and scratch to abdomen. NEURO: A&O X3. Speech clear. Cranial nerves II-XII intact. No ataxic movements. PSYCHIATRIC: Flat affect <Inocencia Cerna APRN - Last Filed: 06/21/25 18:08> Course Course Emergency Course: ZYCH: Patient signed out pending crisis evaluation. Pat <Cash Pepe MD - Last Filed: 06/21/25 04:31> MIGUELITO: Patient signed out pending crisis evaluation. Rosa AGEEEY: Patient signed out to me pending placement. Reportedly suicidal ideation homicidal ideation. Had not required any medications by overnight physician. Nurse does report that patient was complaining of pain related to dog bite. Acetaminophen ordered. This had not initially been conveyed in sign- out however I do see per EARLY CHILDHOOD SPECIAL EDUCATOR note that patient had presented initially to [facility] for this injury and already has doxycycline and clindamycin scheduled/ordered for this. I am notified that patient has been accepted. Will arrange EMS transportation. <Uzma Batres MD - Last Filed: 06/21/25 11:12> Vital Signs Vital signs: Vital Signs Temperature 36.6 C 06/20/25 20:12 Pulse Rate 97 06/20/25 20:12 Respiratory Rate 16 06/20/25 20:12 Blood Pressure 125/72 06/20/25 20:12 Pulse Oximetry 96 06/20/25 20:12 Oxygen Delivery Room Air 06/20/25 20:12 Temperature 36.5 C 06/21/25 08:54 Pulse Rate 68 06/21/25 13:57 Respiratory Rate 17 06/21/25 13:57 Blood Pressure 104/63 06/21/25 13:57 Pulse Oximetry 94 06/21/25 13:57 Oxygen Delivery Room Air 06/20/25 20:12 <Inocencia Cerna APRN - Last Filed: 06/21/25 18:08> Vital Signs Temperature 36.6 C 06/20/25 20:12 Pulse Rate 97 06/20/25 20:12 Respiratory Rate 16 06/20/25 20:12 Blood Pressure 125/72 06/20/25 20:12 Pulse Oximetry 96 06/20/25 20:12 Oxygen Delivery Room Air 06/20/25 20:12 Temperature 36.5 C 06/21/25 08:54 Pulse Rate 68 06/21/25 13:57 Respiratory Rate 17 06/21/25 13:57 Blood Pressure 104/63 06/21/25 13:57 Pulse Oximetry 94 06/21/25 13:57 Oxygen Delivery Room Air 06/20/25 20:12 <Cash Pepe MD - Last Filed: 06/21/25 04:31> Vital Signs Temperature 36.6 C 06/20/25 20:12 Pulse Rate 97 06/20/25 20:12 Respiratory Rate 16 06/20/25 20:12 Blood Pressure 125/72 06/20/25 20:12 Pulse Oximetry 96 06/20/25 20:12 Oxygen Delivery Room Air 06/20/25 20:12 Temperature 36.5 C 06/21/25 08:54 Pulse Rate 68 06/21/25 13:57 Respiratory Rate 17 06/21/25 13:57 Blood Pressure 104/63 06/21/25 13:57 Pulse Oximetry 94 06/21/25 13:57 Oxygen Delivery Room Air 06/20/25 20:12 <Uzma Batres MD - Last Filed: 06/21/25 11:12> MDM - Psych MDM Narrative Medical decision making narrative: Patient is a 35-year-old male who presents to the ER with suicidal and homicidal ideation. Patient reports he was discharged from [place] approximately 1 week ago and has felt worse over the last 48 hours. He reports he gets an Invega shot once a month which he does not think is helping his symptoms. Patient also reports he was attacked by a dog earlier today, bit in the thigh, ankle, and stomach. He went to [facility] for treatment where they put him on clindamycin and doxycycline. Patient endorses an extensive mental health history, along with a subdural bleed 9 years ago. He currently endorses pain at each of the sites, along with a headache. Patient reports he took Tylenol prior to coming to the ER. He denies any recent fevers, chest pain, shortness of breath, or urinary symptoms. * Pt reports he was placed on Doxycycline and Clindamycin at [facility] to treat his dog bite wounds. Will continue these medications here. Labs Ordered: CBC, CMP, TSH, Tylenol level, salicylate level, UA, UDS Imaging Ordered: None necessary Medications Ordered: None necessary Results: Patient's CBC indicates a white blood cell count of 15.1, RBC of 4.42, hemoglobin of 13.2, hematocrit of 39.9%. His CMP was unremarkable except for a sodium of 134. Patient's UDS indicates he is positive for opiates and amphetamines. Diagnosis: Suicidal ideation Consults: mental health intake 2229- Pt is medically clear for psychiatric intake MDM: Results of lab work shared with patient. It was advised by mental health intake that patient be admitted to a psychiatric hospital for further evaluation and inpatient treatment. Patient verbalized understanding and is in agreement with plan. 0300- Care signed out to Dr. Pepe pending psychiatric hospital placement. <Inocencia Cerna, CHRONIC SPECIALIST - Last Filed: 06/21/25 18:08> Differential Diagnosis Differential diagnosis: Likely acute psychosis, suicidal ideation, bipolar disorder, depression, drug-induced psychotic disorder and acute anxiety <Inocencia Cerna, CHRONIC SPECIALIST - Last Filed: 06/21/25 18:08> Lab Data Attestation: I reviewed the patient's lab results. <Inocencia Cerna, CHRONIC SPECIALIST - Last Filed: 06/21/25 18:08> Result diagrams: 06/20/25 20:36 06/20/25 20:36 <Inocencia Cerna, CHRONIC SPECIALIST - Last Filed: 06/21/25 18:08> Labs: Lab Results 06/20/25 06/20/25 Range/Units 20:36 21:13 WBC 15.1 H (4.5-10.0) K/mm3 RBC 4.42 L (4.6-6.20) M/mm3 Hgb 13.2 L (14.0-18.0) g/dL Hct 39.9 L (42.0-52.0) % MCV 90.3 (80-100) fl MCH 29.9 (26-34) pg MCHC 33.1 (32-36) g/dl RDW 13.2 (11.5-14.5) % Plt Count 217 (150-375) k/mm3 MPV 8.7 (7.4-10.4) fl Immature Gran % (Auto) 0.5 (0-0.5) % Neut % (Auto) 87.5 H (45.5-73.1) % Lymph % (Auto) 5.2 L (18.3-44.2) % Meade % (Auto) 6.0 (2.6-8.5) % Eos % (Auto) 0.5 (0-4.4) % Baso % (Auto) 0.3 (0.2-1.2) % Lymph # (Auto) 0.79 L (0.9-3.2) K/mm3 Meade # (Auto) 0.9 H (0.1-0.6) K/mm3 Eos # (Auto) 0.1 (0-0.3) K/mm3 Baso # (Auto) 0.0 (0.0-0.1) K/mm3 Abs Immat Gran (auto) 0.07 H (0.00-0.031) K/mm3 Absolute Neuts (auto) 13.2 H (1.3-6.7) K/mm3 Absolute Nucleated RBC 0.000 (0.0-0.012) K/mm3 Nucleated RBC % 0.0 (0.0-0.2) % Sodium 134 L (137-145) mmol/L Potassium 3.6 (3.4-5.0) mmol/L Chloride 100 (98-107) mmol/L Carbon Dioxide 25 (22-30) mmol/L Anion Gap 9 (4-12) mmol/L BUN 13 (9-20) mg/dL Creatinine 0.81 (0.7-1.3) mg/dL Estim Creat Clear Calc 132 ml/min Estimated GFR > 60 (59 - ) Glucose 82 (65-110) mg/dL Calcium 9.2 (8.4-10.2) mg/dL Total Bilirubin 0.4 (0.2-1.3) mg/dL AST 29 (17-59) U/L ALT 14 (6-50) U/L Alkaline Phosphatase 93 (38-126) U/L Total Protein 7.0 (6.3-8.2) g/dL Albumin 4.2 (3.5-5.1) g/dL TSH (Reflex) 1.030 (0.465-4.68) uIU/mL Urine Color Yellow (Yellow) Urine Appearance Clear (Clear) Urine pH 5.5 (5.0-9.0) Ur Specific [place] 1.007 (1.001-1.035) Urine Protein Negative (Negative) mg/dL Urine Glucose (UA) Negative (Negative) mg/dL Urine Ketones Negative (Negative) mg/dL Ur Blood (Man) Negative (Negative) Urine Nitrate Negative (Negative) Urine Bilirubin Negative (Negative) Urine Urobilinogen 0.2 (<2.0) mg/dL Leukocyte Esterase Rfl Negative (Negative) JAYLON/UL Salicylates < 1.0 L (2-20) mg/dL Urine Opiates Screen Positive A (Negative) Urine Methadone Screen Negative (Negative) Acetaminophen 14 (10-30) ug/mL Ur Barbiturates Screen Negative (Negative) Ur Phencyclidine Scrn Negative (Negative) Ur Amphetamine Screen Positive A (Negative) U Benzodiazepines Scrn Negative (Negative) Urine Cocaine Screen Negative (Negative) U Cannabinoids Screen Negative (Negative) Ethyl Alcohol 12 (<10) mg/dL Influenza A (RT-PCR) Negative (Negative) Influenza B (RT-PCR) Negative (Negative) RSV (RT-PCR) Negative (Negative) SARS-CoV-2 RNA (RT-PCR) Negative (Negative) <Inocencia Cerna, CHRONIC SPECIALIST - Last Filed: 06/21/25 18:08> Lab Results 06/20/25 06/20/25 Range/Units 20:36 21:13 WBC 15.1 H (4.5-10.0) K/mm3 RBC 4.42 L (4.6-6.20) M/mm3 Hgb 13.2 L (14.0-18.0) g/dL Hct 39.9 L (42.0-52.0) % MCV 90.3 (80-100) fl MCH 29.9 (26-34) pg MCHC 33.1 (32-36) g/dl RDW 13.2 (11.5-14.5) % Plt Count 217 (150-375) k/mm3 MPV 8.7 (7.4-10.4) fl Immature Gran % (Auto) 0.5 (0-0.5) % Neut % (Auto) 87.5 H (45.5-73.1) % Lymph % (Auto) 5.2 L (18.3-44.2) % Meade % (Auto) 6.0 (2.6-8.5) % Eos % (Auto) 0.5 (0-4.4) % Baso % (Auto) 0.3 (0.2-1.2) % Lymph # (Auto) 0.79 L (0.9-3.2) K/mm3 Meade # (Auto) 0.9 H (0.1-0.6) K/mm3 Eos # (Auto) 0.1 (0-0.3) K/mm3 Baso # (Auto) 0.0 (0.0-0.1) K/mm3 Abs Immat Gran (auto) 0.07 H (0.00-0.031) K/mm3 Absolute Neuts (auto) 13.2 H (1.3-6.7) K/mm3 Absolute Nucleated RBC 0.000 (0.0-0.012) K/mm3 Nucleated RBC % 0.0 (0.0-0.2) % Sodium 134 L (137-145) mmol/L Potassium 3.6 (3.4-5.0) mmol/L Chloride 100 (98-107) mmol/L Carbon Dioxide 25 (22-30) mmol/L Anion Gap 9 (4-12) mmol/L BUN 13 (9-20) mg/dL Creatinine 0.81 (0.7-1.3) mg/dL Estim Creat Clear Calc 132 ml/min Estimated GFR > 60 (59 - ) Glucose 82 (65-110) mg/dL Calcium 9.2 (8.4-10.2) mg/dL Total Bilirubin 0.4 (0.2-1.3) mg/dL AST 29 (17-59) U/L ALT 14 (6-50) U/L Alkaline Phosphatase 93 (38-126) U/L Total Protein 7.0 (6.3-8.2) g/dL Albumin 4.2 (3.5-5.1) g/dL TSH (Reflex) 1.030 (0.465-4.68) uIU/mL Urine Color Yellow (Yellow) Urine Appearance Clear (Clear) Urine pH 5.5 (5.0-9.0) Ur Specific [place] 1.007 (1.001-1.035) Urine Protein Negative (Negative) mg/dL Urine Glucose (UA) Negative (Negative) mg/dL Urine Ketones Negative (Negative) mg/dL Ur Blood (Man) Negative (Negative) Urine Nitrate Negative (Negative) Urine Bilirubin Negative (Negative) Urine Urobilinogen 0.2 (<2.0) mg/dL Leukocyte Esterase Rfl Negative (Negative) JAYLON/UL Salicylates < 1.0 L (2-20) mg/dL Urine Opiates Screen Positive A (Negative) Urine Methadone Screen Negative (Negative) Acetaminophen 14 (10-30) ug/mL Ur Barbiturates Screen Negative (Negative) Ur Phencyclidine Scrn Negative (Negative) Ur Amphetamine Screen Positive A (Negative) U Benzodiazepines Scrn Negative (Negative) Urine Cocaine Screen Negative (Negative) U Cannabinoids Screen Negative (Negative) Ethyl Alcohol 12 (<10) mg/dL Influenza A (RT-PCR) Negative (Negative) Influenza B (RT-PCR) Negative (Negative) RSV (RT-PCR) Negative (Negative) SARS-CoV-2 RNA (RT-PCR) Negative (Negative) <Cash Pepe MD - Last Filed: 06/21/25 04:31> Lab Results 06/20/25 06/20/25 Range/Units 20:36 21:13 WBC 15.1 H (4.5-10.0) K/mm3 RBC 4.42 L (4.6-6.20) M/mm3 Hgb 13.2 L (14.0-18.0) g/dL Hct 39.9 L (42.0-52.0) % MCV 90.3 (80-100) fl MCH 29.9 (26-34) pg MCHC 33.1 (32-36) g/dl RDW 13.2 (11.5-14.5) % Plt Count 217 (150-375) k/mm3 MPV 8.7 (7.4-10.4) fl Immature Gran % (Auto) 0.5 (0-0.5) % Neut % (Auto) 87.5 H (45.5-73.1) % Lymph % (Auto) 5.2 L (18.3-44.2) % [place]ade % (Auto) 6.0 (2.6-8.5) % Eos % (Auto) 0.5 (0-4.4) % Baso % (Auto) 0.3 (0.2-1.2) % Lymph # (Auto) 0.79 L (0.9-3.2) K/mm3 [place]ade # (Auto) 0.9 H (0.1-0.6) K/mm3 Eos # (Auto) 0.1 (0-0.3) K/mm3 Baso # (Auto) 0.0 (0.0-0.1) K/mm3 Abs Immat Gran (auto) 0.07 H (0.00-0.031) K/mm3 Absolute Neuts (auto) 13.2 H (1.3-6.7) K/mm3 Absolute Nucleated RBC 0.000 (0.0-0.012) K/mm3 Nucleated RBC % 0.0 (0.0-0.2) % Sodium 134 L (137-145) mmol/L Potassium 3.6 (3.4-5.0) mmol/L Chloride 100 (98-107) mmol/L Carbon Dioxide 25 (22-30) mmol/L Anion Gap 9 (4-12) mmol/L BUN 13 (9-20) mg/dL Creatinine 0.81 (0.7-1.3) mg/dL Estim Creat Clear Calc 132 ml/min Estimated GFR > 60 (59 - ) Glucose 82 (65-110) mg/dL Calcium 9.2 (8.4-10.2) mg/dL Total Bilirubin 0.4 (0.2-1.3) mg/dL AST 29 (17-59) U/L ALT 14 (6-50) U/L Alkaline Phosphatase 93 (38-126) U/L Total Protein 7.0 (6.3-8.2) g/dL Albumin 4.2 (3.5-5.1) g/dL TSH (Reflex) 1.030 (0.465-4.68) uIU/mL Urine Color Yellow (Yellow) Urine Appearance Clear (Clear) Urine pH 5.5 (5.0-9.0) Ur Specific [place] 1.007 (1.001-1.035) Urine Protein Negative (Negative) mg/dL Urine Glucose (UA) Negative (Negative) mg/dL Urine Ketones Negative (Negative) mg/dL Ur Blood (Man) Negative (Negative) Urine Nitrate Negative (Negative) Urine Bilirubin Negative (Negative) Urine Urobilinogen 0.2 (<2.0) mg/dL Leukocyte Esterase Rfl Negative (Negative) JAYLON/UL Salicylates < 1.0 L (2-20) mg/dL Urine Opiates Screen Positive A (Negative) Urine Methadone Screen Negative (Negative) Acetaminophen 14 (10-30) ug/mL Ur Barbiturates Screen Negative (Negative) Ur Phencyclidine Scrn Negative (Negative) Ur Amphetamine Screen Positive A (Negative) U Benzodiazepines Scrn Negative (Negative) Urine Cocaine Screen Negative (Negative) U Cannabinoids Screen Negative (Negative) Ethyl Alcohol 12 (<10) mg/dL Influenza A (RT-PCR) Negative (Negative) Influenza B (RT-PCR) Negative (Negative) RSV (RT-PCR) Negative (Negative) SARS-CoV-2 RNA (RT-PCR) Negative (Negative) <Uzma Batres MD - Last Filed: 06/21/25 11:12> Discharge Plan Discharge Clinical Impression: Depression with suicidal ideation, Homicidal ideation, Polysubstance abuse Dog bite Qualifiers: Encounter type: sequela Qualified Code(s): W54.0XXS - Bitten by dog, sequela <Inocencia Cerna APRN - Last Filed: 06/21/25 18:08> Patient Disposition: Psychiatric Hosp <Inocencia Cerna APRN - Last Filed: 06/21/25 18:08> Condition: Stable <Inocencia Cerna APRN - Last Filed: 06/21/25 18:08> Patient Language: Jamaican <Inocencia Cerna APRN - Last Filed: 06/21/25 18:08> Prescriptions: No Action chlordiazepoxide HCl 25 mg capsule 25 mg PO BID PRN (Reason: alcohol withdrawal) Qty: 25 0RF Rx Instructions: Day 1, take 2 caps by mouth every 6 hours for one day Day 2, take 1 cap by mouth every 6 hours for one day Day 3, take 1 cap by mouth every 12 hours for one day Day 4, take 1 cap by mouth at night clotrimazole 1 % cream 1 applic topical BID 28 Days Qty: 30 0RF Vyvanse 30 mg capsule <Inocencia Cerna APRN - Last Filed: 06/21/25 18:08> Follow-up/Referrals: UNKNOWN,DOCTOR [Primary Care Provider] <Inocencia Cerna APRN - Last Filed: 06/21/25 18:08> Time of Disposition: 11:12 <Inocencia Cerna APRN - Last Filed: 06/21/25 18:08> 11:12 <Cash Pepe MD - Last Filed: 06/21/25 04:31> 11:12 <Uzma Batres MD - Last Filed: 06/21/25 11:12>
[2025-06-20 21:02] LABS: Alanine Aminotransferase 14 U/L (6-50); Albumin Level 4.2 g/dL (3.5-5.1); Alkaline Phosphatase 93 U/L (38-126); Anion Gap 9 mmol/L (4-12); Aspartate Amino Transferase 29 U/L (17-59); Bilirubin,Total 0.4 mg/dL (0.2-1.3); Blood Urea Nitrogen 13 mg/dL (9-20); Calcium 9.2 mg/dL (8.4-10.2); Carbon Dioxide 25 mmol/L (22-30); Chloride 100 mmol/L (98-107); Estimated CRCL calculation 132 ml/min; Estimated Glomerular Filt Rate > 60; Glucose 82 mg/dL (65-110); Potassium 3.6 mmol/L (3.4-5.0); Sodium 134 mmol/L (137-145); Total Protein 7.0 g/dL (6.3-8.2)
[2025-06-20 21:04] LABS: Cannabinoid Screen Urine Negative (Negative)
[2025-06-20] MEDS: IBUPROFEN 600 MG TABLET PO (21:15)
--- NOTE | 2025-06-20 21:30 | PC.NURSE ---
Pt requested a meal since he had not eaten for quite some time. Per Inocencia, pt is able to eat. Pt given a sandwich and some soda to drink. No other requests at this time.
[2025-06-20 21:51] LABS: Thyroid Stimulating Hormone Reflex 1.030 uIU/mL (0.465-4.68)
[2025-06-20 21:57] LABS: Influenza A QL RT-PCR Negative (Negative); Influenza B QL RT-PCR Negative (Negative); RSV RNA, RT-PCR Negative (Negative); SARS-CoV-2 RNA PCR Negative (Negative)
--- NOTE | 2025-06-20 23:00 | PC.NURSE ---
Pt asleep in bed. No requests at this time.
[2025-06-20 23:31] LABS: Acetaminophen 14 ug/mL (10-30); Salicylate < 1.0 mg/dL (2-20)
[2025-06-21] MEDS: DOXYCYCLINE HYCLATE 100 MG TABLET PO (04:34)
[2025-06-21] MEDS: CLINDAMYCIN HCL 150 MG CAP 300 MG PO (04:34)
[2025-06-21 04:35] VITALS: BP 125/69; PULSE 66; RESP 18; O2SAT 100
--- NOTE | 2025-06-21 06:14 | PC.NURSE ---
This RN got off the phone with Duarte from [facility]. She verbally states pt voluntary admission form was outdated and is in need of a up to date voluntary admission form. this Rn filled out anew voluntary admission form pt was updated on where we are at in the process at this time. This RN faxed over to [facility] at [phone] per Duarte from [facility].
--- NOTE | 2025-06-21 07:20 | PC.NURSE ---
Pt resting on stretcher, lights dimmed and sitter at bedside. Pt is alert to verbal stimuli. Discussed POC. Breakfast tray ordered for pt.
[2025-06-21] MEDS: ACETAMINOPHEN 500 MG TABLET 1000 MG PO (08:04)
--- NOTE | 2025-06-21 08:16 | PC.NURSE ---
Pt requesting Tylenol for pain to right thigh, pt states he has a dog bite. This RN was given VORB to give pain Tylenol as requested. Pt declined to have this RN assess the wound. Pt did lift sheets to show the area which was on his right upper, posterior leg. Pt pants noted to be saturated with drainage from wound, as well as bedding. Pt declined new scrubs and bed linen change. Pt declined allowing this RN to visualize the wound. Pt states It was already bandaged. I dont want you to change the dressing. I dont want you to look at it. I will change the pants later, maybe. Pt remains calm on the stretcher. Pt given pants and new bedding as discussed and placed at bedside. Discussed with Dr Roldan.
[2025-06-21 08:54] VITALS: BP 117/65; PULSE 78; RESP 15; TEMP 36.5; O2SAT 97
[2025-06-21 13:57] VITALS: BP 104/63; PULSE 68; RESP 17; O2SAT 94
[2025-06-21] MEDS: IBUPROFEN 600 MG TABLET PO (14:04)
--- NOTE | 2025-06-21 14:43 | PC.NURSE ---
[facility] here to [facility] picker pt at this time. All belongings and chart sent with EMS
== END 2025-06-21 14:44 ==
PROVIDERS: Registered Nurse; Emergency Provider Student in an Organized Health Care Education/Training Program
DX: F31.9 Bipolar disorder, unspecified (principal); R45.851 Suicidal ideations; R45.850 Homicidal ideations; S71.152D Open bite, left thigh, subsequent encounter; S91.052D Open bite, left ankle, subsequent encounter; Z11.52 Encounter for screening for COVID-19; F43.10 Post-traumatic stress disorder, unspecified; F41.9 Anxiety disorder, unspecified; W54.0XXD Bitten by dog, subsequent encounter
CPT/HCPCS: 36415; 80053; 80143; 80179; 80307; 81003; 82077; 84443; 85025; 87637; 99285; A9270